=== PATIENT | male | born 1970 | race Two or more races ===

== ENCOUNTER 2016-08-28 11:52 | Inpatient (IN) | payer OTHER ==
[2016-08-28 12:02] VITALS: BMI 27.6
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
[2016-08-28] MEDS ORDERED: MENTHOL/PHENOL 1 EACH UD MM PRN (13:50)
[2016-08-28] MEDS ORDERED: MAGNESIUM HYDROX 2400MG/30ML ORAL SUSPENSION 30 ML CUP PO PRN (13:50)
[2016-08-28] MEDS ORDERED: MAG HYDROX/AL HYDROX/SIMETH 30 ML UNIT-DOSE CUP PO PRN (13:50)
[2016-08-28] MEDS ORDERED: hydrOXYzine PAMOATE 50 MG CAPSULE (FP) PO PRN (13:50)
[2016-08-28] MEDS ORDERED: diphenhydrAMINE HCL 50 MG CAPSULE PO PRN (13:50)
[2016-08-28] MEDS ORDERED: guaiFENesin/D-METHORPHAN HB 10 ML UNIT-DOSE CUPS PO PRN (13:50)
[2016-08-28] MEDS ORDERED: LOPERAMIDE HCL 2 MG CAPSULE PO PRN (13:50)
[2016-08-28] MEDS ORDERED: MAGNESIUM CITRATE 300 ML BOTTLE PO PRN (13:50)
[2016-08-28] MEDS ORDERED: METHADONE HCL 10 MG TABLET (FOR DETOX USE ONLY) PO ONE ×2 (14:00→23:00)
[2016-08-28] MEDS: diazePAM 5 MG TABLET PO PRN (15:19)
[2016-08-28] MEDS: CYCLOBENZAPRINE HCL 10 MG TABLET (FP) PO PRN (15:21)
[2016-08-28] MEDS: IBUPROFEN 400 MG TABLET (FP) PO PRN (17:31)
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
[2016-08-28 20:09] LABS: URINE APPEARANCE CLEAR; URINE BILIRUBIN NEGATIVE (NEGATIVE); URINE BLOOD NEGATIVE (NEGATIVE); URINE COLOR YELLOW; URINE GLUCOSE (UA) NEGATIVE (NEGATIVE); URINE KETONE NEGATIVE (NEGATIVE); URINE LEUK ESTERASE NEGATIVE (NEGATIVE); URINE NITRITE NEGATIVE (NEGATIVE); URINE PROTEIN NEGATIVE (NEGATIVE); URINE UROBILINOGEN NEGATIVE E.U./dl (0.2-1.0)
[2016-08-28] MEDS ORDERED: DIVALPROEX SODIUM 500 MG TABLET E.C. PO SCH (22:00)
[2016-08-28] MEDS: THIAMINE HCL 100 MG TABLET (FP) PO SCH (22:20)
[2016-08-28] MEDS: QUEtiapine FUMARATE 100 MG TABLET (FP) PO SCH (22:20)
[2016-08-28] MEDS: cloNIDine HCL 0.1 MG TABLET PO SCH (22:20)
[2016-08-28] MEDS: BENZTROPINE MESYLATE 1 MG TABLET (FP) PO SCH (22:21)
[2016-08-29] MEDS: IBUPROFEN 400 MG TABLET (FP) PO PRN (05:50)
--- NOTE | 2016-08-29 09:52 | PN ---
[facility] COWS - Scale Resting Pulse: 0= [place] 80 or Below Sweatin= Chills/Flushing Restless Observation: 3= Extraneous Movement Pupil Size: 1= Pupils >than Normal Bone or Joint Aches: 2= Severe Diffuse Aches Runny Nose/ Eye Tearin= Runny Nose/Eyes GI Upset > 30mins: 2= Nausea/Diarrhea Tremor Observation of Outstretched Hands: 2= Slight Tremor Visible Yawning Observation: 1= 1-2x During Session Anxiety or Irritability: 2=Irritable/Anxious Goose Flesh Skin: 0=Smooth Skin COWS Score: 16 S Progress Note (SOAP) Subjective: ALERT,IRRITABLE,ANXIOUS,TREMOR,INTERRUPTED SLEEP,PAIN IN THE BODY AND BACK Objective: 08/29/16 09:50 Vital Signs Temperature 97.5 F L 08/29/16 06:10 Pulse Rate 62 08/29/16 06:10 Respiratory Rate 16 08/29/16 06:10 Blood Pressure 98/60 08/29/16 06:10 O2 Sat by Pulse Oximetry (%) 08/29/16 09:50 08/29/16 09:50 EKG NSR,NORMAL ECG Laboratory Last Values Urine Color Yellow 08/28/16 14:00 Urine Appearance Clear 08/28/16 14:00 Urine pH 5.0 (5.0-8.0) 08/28/16 14:00 Ur Specific [place] 1.026 (1.001-1.035) 08/28/16 14:00 Urine Protein Negative (NEGATIVE) 08/28/16 14:00 Urine Glucose (UA) Negative (NEGATIVE) 08/28/16 14:00 Urine Ketones Negative (NEGATIVE) 08/28/16 14:00 Urine Blood Negative (NEGATIVE) 08/28/16 14:00 Urine Nitrite Negative (NEGATIVE) 08/28/16 14:00 Urine Bilirubin Negative (NEGATIVE) 08/28/16 14:00 Urine Urobilinogen Negative E.U./dl (0.2-1.0) 08/28/16 14:00 Ur Leukocyte Esterase Negative (NEGATIVE) 08/28/16 14:00 LABS PENDING Assessment: 08/29/16 09:51 WITHDRAWAL SYMPTOM Plan: CONTINUE DETOX
--- NOTE | 2016-08-29 09:54 | PN ---
S Progress Note (SOAP) Subjective: ALERT,IRRITABLE,ANXIOUS,INTERRUPTED SLEEP Objective: 08/29/16 09:53 Vital Signs Temperature 97.5 F L 08/29/16 06:10 Pulse Rate 62 08/29/16 06:10 Respiratory Rate 16 08/29/16 06:10 Blood Pressure 98/60 08/29/16 06:10 O2 Sat by Pulse Oximetry (%) Assessment: 08/29/16 09:53 WITHDRAWAL SYMPTOM Plan: CONTINUE DETOX,DISCHARGE IN AM
[2016-08-29] MEDS ORDERED: METHADONE HCL 10 MG TABLET (FOR DETOX USE ONLY) PO ONE (10:00)
[2016-08-29] MEDS: PRENATAL VITAMINS W/ FOLIC ACID TABLET (FP) PO SCH (10:18)
[2016-08-29] MEDS: cloNIDine HCL 0.1 MG TABLET PO SCH ×2 (10:18→22:22)
[2016-08-29] MEDS: CITALOPRAM HYDROBROMIDE 10 MG TABLET (FP) PO SCH (10:18)
[2016-08-29] MEDS: QUEtiapine FUMARATE 100 MG TABLET (FP) PO SCH ×2 (10:18→22:22)
[2016-08-29] MEDS: BENZTROPINE MESYLATE 1 MG TABLET (FP) PO SCH ×2 (10:19→22:23)
[2016-08-29] MEDS: diazePAM 5 MG TABLET PO PRN ×3 (10:19→22:22)
[2016-08-29 11:33] LABS: MCH 30.7 pg (25.7-33.7); MCHC 33.8 g/dl (32.0-35.9); MEAN CELL VOLUME 90.8 fl (80-96); MEAN PLT VOLUME 8.6 fl (7.5-11.1); PLATELET COUNT 251 K/MM3 (134-434); RDW 15.4 % (11.9-15.9); WHITE BLOOD COUNT 10.5 K/mm3 (4.0-10.0)
[2016-08-29 12:10] LABS: ALBUMIN 4.2 g/dl (3.4-5.0); ANION GAP 3 (8-16); BILIRUBIN,TOTAL 0.4 mg/dL (0.2-1.0); CALCIUM 9.3 mg/dL (8.5-10.1); CO2 29 mmol/L (21-32); GLUCOSE,RANDOM 76 mg/dL (74-106); SGOT/AST 55 U/L (15-37); SGPT/ALT 246 U/L (12-78); TOT PROT 8.2 g/dl (6.4-8.2)
[2016-08-29 12:11] LABS: ALK PHOS 116 U/L (45-117)
[2016-08-29] MEDS: THIAMINE HCL 100 MG TABLET (FP) PO SCH (22:22)
[2016-08-29] MEDS: RANITIDINE HCL 150 MG TABLET (FP) PO SCH (22:22)
[2016-08-29] MEDS: CYCLOBENZAPRINE HCL 10 MG TABLET (FP) PO PRN (22:24)
[2016-08-30] MEDS ORDERED: METHADONE HCL 5 MG TABLET (FOR DETOX USE ONLY) PO ONE (10:00)
[2016-08-30] MEDS: CITALOPRAM HYDROBROMIDE 10 MG TABLET (FP) PO SCH (10:18)
[2016-08-30] MEDS: RANITIDINE HCL 150 MG TABLET (FP) PO SCH ×2 (10:18→22:08)
[2016-08-30] MEDS: cloNIDine HCL 0.1 MG TABLET PO SCH ×2 (10:19→22:09)
[2016-08-30] MEDS: PRENATAL VITAMINS W/ FOLIC ACID TABLET (FP) PO SCH (10:19)
[2016-08-30] MEDS: QUEtiapine FUMARATE 100 MG TABLET (FP) PO SCH ×2 (10:19→22:09)
[2016-08-30] MEDS: BENZTROPINE MESYLATE 1 MG TABLET (FP) PO SCH ×2 (10:19→22:08)
[2016-08-30] MEDS: CYCLOBENZAPRINE HCL 10 MG TABLET (FP) PO PRN ×2 (10:20→22:11)
[2016-08-30] MEDS: ACETAMINOPHEN 325 MG TABLET (FP) PO PRN (12:59)
[2016-08-30] MEDS: P-EPHED 60MG/TRIPROLIDI 2.5MG TABLET PO PRN (15:02)
[2016-08-30] MEDS: diazePAM 5 MG TABLET PO PRN ×2 (15:03→22:11)
--- NOTE | 2016-08-30 15:52 | PN ---
[facility] COWS - Scale Resting Pulse: 1= [place] 81-100 Sweatin=Flushed/Facial Moisture Restless Observation: 1= Difficult to Sit Still Pupil Size: 0= Normal to Room Light Bone or Joint Aches: 2= Severe Diffuse Aches Runny Nose/ Eye Tearin= Runny Nose/Eyes GI Upset > 30mins: 2= Nausea/Diarrhea Tremor Observation of Outstretched Hands: 2= Slight Tremor Visible Yawning Observation: 1= 1-2x During Session Anxiety or Irritability: 2=Irritable/Anxious Goose Flesh Skin: 0=Smooth Skin COWS Score: 15 B[facility] Progress Note (SOAP) Subjective: ANXIETY,SWEATING,INTERRUPTED SLEEP,RESTLESS. Objective: 08/30/16 15:51 Vital Signs - 8 hr 08/30/16 08/30/16 10:36 13:49 Temperature 96.7 F L 98.5 F Pulse Rate 78 72 Respiratory 18 18 Rate Blood Pressure 114/65 123/62 Laboratory Last Values WBC 10.5 K/mm3 (4.0-10.0) H D 08/29/16 06:00 RBC 4.41 M/mm3 (4.00-5.60) 08/29/16 06:00 Hgb 13.6 GM/dL (11.7-16.9) 08/29/16 06:00 Hct 40.1 % (35.4-49) 08/29/16 06:00 MCV 90.8 fl (80-96) 08/29/16 06:00 MCHC 33.8 g/dl (32.0-35.9) 08/29/16 06:00 RDW 15.4 % (11.9-15.9) 08/29/16 06:00 Plt Count 251 K/MM3 (134-434) 08/29/16 06:00 MPV 8.6 fl (7.5-11.1) 08/29/16 06:00 Sodium 136 mmol/L (136-145) 08/29/16 06:00 Potassium 5.0 mmol/L (3.5-5.1) 08/29/16 06:00 Chloride 104 mmol/L (98-107) 08/29/16 06:00 Carbon Dioxide 29 mmol/L (21-32) 08/29/16 06:00 Anion Gap 3 (8-16) L 08/29/16 06:00 BUN 22 mg/dL (7-18) H D 08/29/16 06:00 Creatinine 1.0 mg/dL (0.7-1.3) 08/29/16 06:00 Creat Clearance w eGFR > 60 (>60) 08/29/16 06:00 Random Glucose 76 mg/dL (74-106) D 08/29/16 06:00 Calcium 9.3 mg/dL (8.5-10.1) 08/29/16 06:00 Total Bilirubin 0.4 mg/dL (0.2-1.0) 08/29/16 06:00 AST 55 U/L (15-37) H D 08/29/16 06:00 ALT 246 U/L (12-78) H D 08/29/16 06:00 Alkaline Phosphatase 116 U/L (45-117) D 08/29/16 06:00 Total Protein 8.2 g/dl (6.4-8.2) 08/29/16 06:00 Albumin 4.2 g/dl (3.4-5.0) D 08/29/16 06:00 Urine Color Yellow 08/28/16 14:00 Urine Appearance Clear 08/28/16 14:00 Urine pH 5.0 (5.0-8.0) 08/28/16 14:00 Ur Specific [place] 1.026 (1.001-1.035) 08/28/16 14:00 Urine Protein Negative (NEGATIVE) 08/28/16 14:00 Urine Glucose (UA) Negative (NEGATIVE) 08/28/16 14:00 Urine Ketones Negative (NEGATIVE) 08/28/16 14:00 Urine Blood Negative (NEGATIVE) 08/28/16 14:00 Urine Nitrite Negative (NEGATIVE) 08/28/16 14:00 Urine Bilirubin Negative (NEGATIVE) 08/28/16 14:00 Urine Urobilinogen Negative E.U./dl (0.2-1.0) 08/28/16 14:00 Ur Leukocyte Esterase Negative (NEGATIVE) 08/28/16 14:00 Valproic Acid 19.423 ug/ml (50-100) L 08/29/16 09:00 RPR Titer Nonreactive (NONREACTIVE) 08/29/16 06:00 LABS NOTED Assessment: 08/30/16 15:51 WITHDRAWAL SX. Plan: CONTINUE DETOX
--- NOTE | 2016-08-30 18:51 | PN ---
[facility] Progress Note Note: Psychiatry Attending's note: Labs reviewed. CBC,basic metabolic panel and LFTS results seen. Satisfactory for initiation of valproate (patient's request). Depakote 500 mg po bid.Ordered.Discussed with patient. Mr Saez had a 20 minute session with this writer technical publications. He gave his consent (verbal) to follow this careplan. Side effects/benefits of valproate discussed with patient. Made aware of risk of liver dysfunction,blood dyscrasias,hair loss. Also informed of risk of weight gain and sedation. Will monitor response.
[2016-08-30] MEDS: THIAMINE HCL 100 MG TABLET (FP) PO SCH (22:08)
[2016-08-30] MEDS: DIVALPROEX SODIUM 500 MG TABLET E.C. PO SCH (22:09)
[2016-08-31] MEDS ORDERED: METHADONE HCL 5 MG TABLET (FOR DETOX USE ONLY) PO ONE (10:00)
[2016-08-31] MEDS: DIVALPROEX SODIUM 500 MG TABLET E.C. PO SCH ×2 (10:23→22:22)
[2016-08-31] MEDS: RANITIDINE HCL 150 MG TABLET (FP) PO SCH ×2 (10:23→22:21)
[2016-08-31] MEDS: CITALOPRAM HYDROBROMIDE 10 MG TABLET (FP) PO SCH (10:23)
[2016-08-31] MEDS: PRENATAL VITAMINS W/ FOLIC ACID TABLET (FP) PO SCH (10:23)
[2016-08-31] MEDS: QUEtiapine FUMARATE 100 MG TABLET (FP) PO SCH ×2 (10:23→22:21)
[2016-08-31] MEDS: BENZTROPINE MESYLATE 1 MG TABLET (FP) PO SCH ×2 (10:24→22:22)
[2016-08-31] MEDS: diazePAM 5 MG TABLET PO PRN (10:24)
[2016-08-31] MEDS: cloNIDine HCL 0.1 MG TABLET PO SCH ×2 (10:25→22:21)
[2016-08-31] MEDS: CYCLOBENZAPRINE HCL 10 MG TABLET (FP) PO PRN (10:25)
--- NOTE | 2016-08-31 10:43 | PN ---
[facility] Progress Note (SOAP) Subjective: SWEATING,INTERRUPTED SLEEP,RESTLESS. Objective: 08/31/16 10:42 Vital Signs - 8 hr 08/31/16 08/31/16 06:12 10:02 Temperature 96.6 F L 97.1 F L Pulse Rate 70 86 Respiratory 18 18 Rate Blood Pressure 113/64 92/66 Laboratory Last Values WBC 10.5 K/mm3 (4.0-10.0) H D 08/29/16 06:00 RBC 4.41 M/mm3 (4.00-5.60) 08/29/16 06:00 Hgb 13.6 GM/dL (11.7-16.9) 08/29/16 06:00 Hct 40.1 % (35.4-49) 08/29/16 06:00 MCV 90.8 fl (80-96) 08/29/16 06:00 MCHC 33.8 g/dl (32.0-35.9) 08/29/16 06:00 RDW 15.4 % (11.9-15.9) 08/29/16 06:00 Plt Count 251 K/MM3 (134-434) 08/29/16 06:00 MPV 8.6 fl (7.5-11.1) 08/29/16 06:00 Sodium 136 mmol/L (136-145) 08/29/16 06:00 Potassium 5.0 mmol/L (3.5-5.1) 08/29/16 06:00 Chloride 104 mmol/L (98-107) 08/29/16 06:00 Carbon Dioxide 29 mmol/L (21-32) 08/29/16 06:00 Anion Gap 3 (8-16) L 08/29/16 06:00 BUN 22 mg/dL (7-18) H D 08/29/16 06:00 Creatinine 1.0 mg/dL (0.7-1.3) 08/29/16 06:00 Creat Clearance w eGFR > 60 (>60) 08/29/16 06:00 Random Glucose 76 mg/dL (74-106) D 08/29/16 06:00 Calcium 9.3 mg/dL (8.5-10.1) 08/29/16 06:00 Total Bilirubin 0.4 mg/dL (0.2-1.0) 08/29/16 06:00 AST 55 U/L (15-37) H D 08/29/16 06:00 ALT 246 U/L (12-78) H D 08/29/16 06:00 Alkaline Phosphatase 116 U/L (45-117) D 08/29/16 06:00 Total Protein 8.2 g/dl (6.4-8.2) 08/29/16 06:00 Albumin 4.2 g/dl (3.4-5.0) D 08/29/16 06:00 Urine Color Yellow 08/28/16 14:00 Urine Appearance Clear 08/28/16 14:00 Urine pH 5.0 (5.0-8.0) 08/28/16 14:00 Ur Specific [place] 1.026 (1.001-1.035) 08/28/16 14:00 Urine Protein Negative (NEGATIVE) 08/28/16 14:00 Urine Glucose (UA) Negative (NEGATIVE) 08/28/16 14:00 Urine Ketones Negative (NEGATIVE) 08/28/16 14:00 Urine Blood Negative (NEGATIVE) 08/28/16 14:00 Urine Nitrite Negative (NEGATIVE) 08/28/16 14:00 Urine Bilirubin Negative (NEGATIVE) 08/28/16 14:00 Urine Urobilinogen Negative E.U./dl (0.2-1.0) 08/28/16 14:00 Ur Leukocyte Esterase Negative (NEGATIVE) 08/28/16 14:00 Valproic Acid 19.423 ug/ml (50-100) L 08/29/16 09:00 RPR Titer Nonreactive (NONREACTIVE) 08/29/16 06:00 LABS NOTED Assessment: 08/31/16 10:43 WITHDRAWAL SX. Plan: CONTINUE DETOX
[2016-08-31] MEDS: ACETAMINOPHEN 325 MG TABLET (FP) PO PRN ×2 (16:51→22:23)
[2016-08-31] MEDS: THIAMINE HCL 100 MG TABLET (FP) PO SCH (22:21)
[2016-08-31] MEDS: P-EPHED 60MG/TRIPROLIDI 2.5MG TABLET PO PRN (22:22)
[2016-09-01] MEDS ORDERED: METHADONE HCL 10 MG TABLET (FOR DETOX USE ONLY) PO ONE (10:00)
[2016-09-01] MEDS: QUEtiapine FUMARATE 100 MG TABLET (FP) PO SCH ×2 (10:16→22:21)
[2016-09-01] MEDS: PRENATAL VITAMINS W/ FOLIC ACID TABLET (FP) PO SCH (10:16)
[2016-09-01] MEDS: DIVALPROEX SODIUM 500 MG TABLET E.C. PO SCH ×2 (10:17→22:21)
[2016-09-01] MEDS: BENZTROPINE MESYLATE 1 MG TABLET (FP) PO SCH ×2 (10:17→22:21)
[2016-09-01] MEDS: CITALOPRAM HYDROBROMIDE 10 MG TABLET (FP) PO SCH (10:17)
[2016-09-01] MEDS: cloNIDine HCL 0.1 MG TABLET PO SCH ×2 (10:17→22:20)
[2016-09-01] MEDS: RANITIDINE HCL 150 MG TABLET (FP) PO SCH ×2 (10:18→22:22)
[2016-09-01] MEDS: CYCLOBENZAPRINE HCL 10 MG TABLET (FP) PO PRN ×2 (10:19→22:22)
[2016-09-01] MEDS: ACETAMINOPHEN 325 MG TABLET (FP) PO PRN ×2 (14:00→18:09)
--- NOTE | 2016-09-01 14:58 | PN ---
[facility] Progress Note (SOAP) Subjective: Sweating, Interrupted Sleep, Left knee Pain (pt. reports history of osteoarthritis of knee), Back Ache. Objective: 09/01/16 14:57 Vital Signs Temperature 96.0 F L 09/01/16 09:39 Pulse Rate 89 09/01/16 09:39 Respiratory Rate 20 09/01/16 09:39 Blood Pressure 118/69 09/01/16 09:39 O2 Sat by Pulse Oximetry (%) Laboratory Last Values WBC 10.5 K/mm3 (4.0-10.0) H D 08/29/16 06:00 RBC 4.41 M/mm3 (4.00-5.60) 08/29/16 06:00 Hgb 13.6 GM/dL (11.7-16.9) 08/29/16 06:00 Hct 40.1 % (35.4-49) 08/29/16 06:00 MCV 90.8 fl (80-96) 08/29/16 06:00 MCHC 33.8 g/dl (32.0-35.9) 08/29/16 06:00 RDW 15.4 % (11.9-15.9) 08/29/16 06:00 Plt Count 251 K/MM3 (134-434) 08/29/16 06:00 MPV 8.6 fl (7.5-11.1) 08/29/16 06:00 Sodium 136 mmol/L (136-145) 08/29/16 06:00 Potassium 5.0 mmol/L (3.5-5.1) 08/29/16 06:00 Chloride 104 mmol/L (98-107) 08/29/16 06:00 Carbon Dioxide 29 mmol/L (21-32) 08/29/16 06:00 Anion Gap 3 (8-16) L 08/29/16 06:00 BUN 22 mg/dL (7-18) H D 08/29/16 06:00 Creatinine 1.0 mg/dL (0.7-1.3) 08/29/16 06:00 Creat Clearance w eGFR > 60 (>60) 08/29/16 06:00 Random Glucose 76 mg/dL (74-106) D 08/29/16 06:00 Calcium 9.3 mg/dL (8.5-10.1) 08/29/16 06:00 Total Bilirubin 0.4 mg/dL (0.2-1.0) 08/29/16 06:00 AST 55 U/L (15-37) H D 08/29/16 06:00 ALT 246 U/L (12-78) H D 08/29/16 06:00 Alkaline Phosphatase 116 U/L (45-117) D 08/29/16 06:00 Total Protein 8.2 g/dl (6.4-8.2) 08/29/16 06:00 Albumin 4.2 g/dl (3.4-5.0) D 08/29/16 06:00 Urine Color Yellow 08/28/16 14:00 Urine Appearance Clear 08/28/16 14:00 Urine pH 5.0 (5.0-8.0) 08/28/16 14:00 Ur Specific [place] 1.026 (1.001-1.035) 08/28/16 14:00 Urine Protein Negative (NEGATIVE) 08/28/16 14:00 Urine Glucose (UA) Negative (NEGATIVE) 08/28/16 14:00 Urine Ketones Negative (NEGATIVE) 08/28/16 14:00 Urine Blood Negative (NEGATIVE) 08/28/16 14:00 Urine Nitrite Negative (NEGATIVE) 08/28/16 14:00 Urine Bilirubin Negative (NEGATIVE) 08/28/16 14:00 Urine Urobilinogen Negative E.U./dl (0.2-1.0) 08/28/16 14:00 Ur Leukocyte Esterase Negative (NEGATIVE) 08/28/16 14:00 Valproic Acid 19.423 ug/ml (50-100) L 08/29/16 09:00 RPR Titer Nonreactive (NONREACTIVE) 08/29/16 06:00 LABS NOTED. Assessment: 09/01/16 14:58 WITHDRAWAL SYMPTOMS. Plan: CONTINUE DETOX. INCREASE PO FLUIDS. ADVISED PT. TO FOLLOW-UP WITH PMD / REHAB MEDICAL PROVIDER AFTER DISCHARGE FOR GENERAL MEDICAL ASSESSMENT AND REGARDING ABNORMAL LAB VALUES.
[2016-09-01] MEDS ORDERED: AMMONIUM LACTATE 12% LOTION 225 GM BOTTLE TP PRN (15:00)
[2016-09-01] MEDS: THIAMINE HCL 100 MG TABLET (FP) PO SCH (22:20)
[2016-09-02] MEDS ORDERED: METHADONE HCL 5 MG TABLET (FOR DETOX USE ONLY) PO ONE (06:00)
--- NOTE | 2016-09-02 08:57 | DS ---
[facility] Detox Discharge Summary Admission Date: 08/28/16 Discharge Date: 09/02/16 - History Present History: Cannabis Dependence, Cocaine Dependence, Opioid Dependence Pertinent Past History: HEP C PPD+ - Physical Exam Results Vital Signs: Vital Signs Temperature 96.9 F L 09/02/16 06:21 Pulse Rate 75 09/02/16 06:21 Respiratory Rate 16 09/02/16 06:21 Blood Pressure 103/63 09/02/16 06:21 O2 Sat by Pulse Oximetry (%) Pertinent Admission Physical Exam Findings: WITHDRAWAL SX. Laboratory Last Values WBC 10.5 K/mm3 (4.0-10.0) H D 08/29/16 06:00 RBC 4.41 M/mm3 (4.00-5.60) 08/29/16 06:00 Hgb 13.6 GM/dL (11.7-16.9) 08/29/16 06:00 Hct 40.1 % (35.4-49) 08/29/16 06:00 MCV 90.8 fl (80-96) 08/29/16 06:00 MCHC 33.8 g/dl (32.0-35.9) 08/29/16 06:00 RDW 15.4 % (11.9-15.9) 08/29/16 06:00 Plt Count 251 K/MM3 (134-434) 08/29/16 06:00 MPV 8.6 fl (7.5-11.1) 08/29/16 06:00 Sodium 136 mmol/L (136-145) 08/29/16 06:00 Potassium 5.0 mmol/L (3.5-5.1) 08/29/16 06:00 Chloride 104 mmol/L (98-107) 08/29/16 06:00 Carbon Dioxide 29 mmol/L (21-32) 08/29/16 06:00 Anion Gap 3 (8-16) L 08/29/16 06:00 BUN 22 mg/dL (7-18) H D 08/29/16 06:00 Creatinine 1.0 mg/dL (0.7-1.3) 08/29/16 06:00 Creat Clearance w eGFR > 60 (>60) 08/29/16 06:00 Random Glucose 76 mg/dL (74-106) D 08/29/16 06:00 Calcium 9.3 mg/dL (8.5-10.1) 08/29/16 06:00 Total Bilirubin 0.4 mg/dL (0.2-1.0) 08/29/16 06:00 AST 55 U/L (15-37) H D 08/29/16 06:00 ALT 246 U/L (12-78) H D 08/29/16 06:00 Alkaline Phosphatase 116 U/L (45-117) D 08/29/16 06:00 Total Protein 8.2 g/dl (6.4-8.2) 08/29/16 06:00 Albumin 4.2 g/dl (3.4-5.0) D 08/29/16 06:00 Urine Color Yellow 08/28/16 14:00 Urine Appearance Clear 08/28/16 14:00 Urine pH 5.0 (5.0-8.0) 08/28/16 14:00 Ur Specific [place] 1.026 (1.001-1.035) 08/28/16 14:00 Urine Protein Negative (NEGATIVE) 08/28/16 14:00 Urine Glucose (UA) Negative (NEGATIVE) 08/28/16 14:00 Urine Ketones Negative (NEGATIVE) 08/28/16 14:00 Urine Blood Negative (NEGATIVE) 08/28/16 14:00 Urine Nitrite Negative (NEGATIVE) 08/28/16 14:00 Urine Bilirubin Negative (NEGATIVE) 08/28/16 14:00 Urine Urobilinogen Negative E.U./dl (0.2-1.0) 08/28/16 14:00 Ur Leukocyte Esterase Negative (NEGATIVE) 08/28/16 14:00 Valproic Acid 19.423 ug/ml (50-100) L 08/29/16 09:00 RPR Titer Nonreactive (NONREACTIVE) 08/29/16 06:00 LABS NOTED - Treatment Hospital Course: Detox Protocol Followed, Detoxed Safely, Responded well, Discharged Condition Good, Rehab Referral Accepted - Medication Discharge Medications: Ambulatory Orders Omeprazole [Prilosec (RX)] 40 mg PO DAILY #30 capsule. 07/11/15 Benztropine Mesylate [Cogentin -] 1 mg PO BID #60 tablet 05/24/16 Citalopram Hydrobromide [Celexa -] 20 mg PO DAILY #30 tablet 05/24/16 Divalproex [Depakote -] 500 mg PO BID #60 tablet.ec 05/24/16 Quetiapine Fumarate [Seroquel] 200 tab PO BID #60 tablet 05/24/16 - Diagnosis (1) Cannabis dependence Current Visit: Yes Status: Acute (2) Cocaine dependence, uncomplicated Current Visit: Yes Status: Acute (3) Nicotine dependence Current Visit: Yes Status: Acute Qualifiers: Nicotine product type: cigarettes Substance use status: uncomplicated Qualified Code(s): F17.210 - Nicotine dependence, cigarettes, uncomplicated (4) Opioid dependence with withdrawal Current Visit: Yes Status: Acute (5) Bipolar disorder Current Visit: Yes Status: Chronic Qualifiers: Current bipolar episode type: mixed (6) Hepatitis C Current Visit: Yes Status: Chronic Qualifiers: Viral hepatitis chronicity: chronic Hepatic coma status: without hepatic coma Qualified Code(s): B18.2 - Chronic viral hepatitis C (7) Peptic ulcer disease Current Visit: Yes Status: Chronic (8) PTSD (post-traumatic stress disorder) Current Visit: Yes Status: Suspected - AMA Did Patient Leave Against Medical Advice: No
[2016-09-02] MEDS: RANITIDINE HCL 150 MG TABLET (FP) PO SCH (10:09)
[2016-09-02] MEDS: DIVALPROEX SODIUM 500 MG TABLET E.C. PO SCH (10:09)
[2016-09-02] MEDS: CITALOPRAM HYDROBROMIDE 10 MG TABLET (FP) PO SCH (10:09)
[2016-09-02] MEDS: cloNIDine HCL 0.1 MG TABLET PO SCH (10:09)
[2016-09-02] MEDS: PRENATAL VITAMINS W/ FOLIC ACID TABLET (FP) PO SCH (10:09)
[2016-09-02] MEDS: QUEtiapine FUMARATE 100 MG TABLET (FP) PO SCH (10:09)
[2016-09-02] MEDS: BENZTROPINE MESYLATE 1 MG TABLET (FP) PO SCH (10:10)
[2016-09-02 10:48] VITALS: BP 120/76; PULSE 94; TEMP 96.7
== END 2016-09-02 11:07 | disposition other institution (70) | DRG 773 ==
LOC: YASAS 11:52 → EDBD 13:57 → Y3N 13:57
PROVIDERS: ADMIT Internal Medicine; ATTEND Internal Medicine
PROC: HZ2ZZZZ Detoxification Services for Substance Abuse Treatment (ICD-10-PCS; principal; 2016-08-28)
DX: F11.23 Opioid dependence with withdrawal (principal); F14.20 Cocaine dependence, uncomplicated; F12.20 Cannabis dependence, uncomplicated; F17.210 Nicotine dependence, cigarettes, uncomplicated; F43.10 Post-traumatic stress disorder, unspecified; F31.81 Bipolar II disorder; R76.11 Nonspecific reaction to tuberculin skin test without active tuberculosis; B18.2 Chronic viral hepatitis C; K27.7 Chronic peptic ulcer, site unspecified, without hemorrhage or perforation; Z86.2 Personal history of diseases of the blood and blood-forming organs and certain disorders involving the immune mechanism; Z91.5 Personal history of self-harm; Z87.898 Personal history of other specified conditions
CPT/HCPCS: 36415; 80053; 80164; 81003; 85027; 86593; 93005; 93010

== ENCOUNTER 2016-09-02 11:19 | Inpatient (IN) | payer OTHER ==
[2016-09-02] MEDS ORDERED: IBUPROFEN 400 MG TABLET (FP) PO PRN (12:09)
[2016-09-02] MEDS ORDERED: MENTHOL/PHENOL 1 EACH UD MM PRN (12:09)
[2016-09-02] MEDS ORDERED: MAGNESIUM HYDROX 2400MG/30ML ORAL SUSPENSION 30 ML CUP PO PRN (12:09)
[2016-09-02] MEDS ORDERED: MAGNESIUM CITRATE 300 ML BOTTLE PO PRN (12:09)
[2016-09-02] MEDS ORDERED: P-EPHED 60MG/TRIPROLIDI 2.5MG TABLET PO PRN (12:09)
[2016-09-02] MEDS ORDERED: MAG HYDROX/AL HYDROX/SIMETH 30 ML UNIT-DOSE CUP PO PRN (12:09)
[2016-09-02] MEDS ORDERED: hydrOXYzine PAMOATE 50 MG CAPSULE (FP) PO PRN (12:09)
[2016-09-02] MEDS ORDERED: LOPERAMIDE HCL 2 MG CAPSULE PO PRN (12:09)
[2016-09-02] MEDS ORDERED: guaiFENesin/D-METHORPHAN HB 10 ML UNIT-DOSE CUPS PO PRN (12:09)
--- NOTE | 2016-09-02 12:14 | HP ---
[facility] Assess/Revision - Admission History [facility] Date of Admission to Rehab: 09/02/16 - Findings Detox History & Physical reviewed: Yes Concur with findings: Yes Comments/Additional Findings: FOR REHAB PROTOCOL
[2016-09-02] MEDS: CITALOPRAM HYDROBROMIDE 10 MG TABLET (FP) PO SCH (13:37)
[2016-09-02] MEDS: BENZTROPINE MESYLATE 1 MG TABLET (FP) PO SCH ×2 (13:38→21:36)
[2016-09-02] MEDS: DIVALPROEX SODIUM 500 MG TABLET E.C. PO SCH ×2 (13:46→21:36)
[2016-09-02 17:41] VITALS: BMI 27.6
[2016-09-02] MEDS: RANITIDINE HCL 150 MG TABLET (FP) PO SCH (21:36)
[2016-09-02] MEDS: CYCLOBENZAPRINE HCL 10 MG TABLET (FP) PO PRN (21:36)
[2016-09-02] MEDS: THIAMINE HCL 100 MG TABLET (FP) PO SCH (21:36)
[2016-09-02] MEDS: QUEtiapine FUMARATE 200 MG TABLET PO SCH (21:36)
[2016-09-02] MEDS: ACETAMINOPHEN 325 MG TABLET (FP) PO PRN (21:37)
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
[2016-09-03] MEDS: CITALOPRAM HYDROBROMIDE 10 MG TABLET (FP) PO SCH (09:40)
[2016-09-03] MEDS: RANITIDINE HCL 150 MG TABLET (FP) PO SCH ×2 (09:40→21:37)
[2016-09-03] MEDS: PRENATAL VITAMINS W/ FOLIC ACID TABLET (FP) PO SCH (09:40)
[2016-09-03] MEDS: DIVALPROEX SODIUM 500 MG TABLET E.C. PO SCH ×2 (09:41→21:36)
[2016-09-03] MEDS: BENZTROPINE MESYLATE 1 MG TABLET (FP) PO SCH ×2 (09:41→21:37)
--- NOTE | 2016-09-03 12:53 | PN ---
[facility] Progress Note (SOAP) Subjective: rash on face and sorethroat Objective: 09/03/16 12:50 Vital Signs Temperature 98.2 F 09/03/16 06:53 Pulse Rate 71 09/03/16 06:53 Respiratory Rate 18 09/03/16 06:53 Blood Pressure 111/61 09/03/16 06:53 O2 Sat by Pulse Oximetry (%) pt aox3 in nad ambulating skin - papulo squamous rash on face oral + redness , enlarged tonsils Assessment: 09/03/16 12:51 seborrrheic dermatitis pharyngits Plan: fluids hydrocortisone cream bid augmentin 875mg bid rest
[2016-09-03] MEDS ORDERED: HYDROCORTISONE 1% TOPICAL CREAM 30 GM TUBE TP PRN (12:54)
[2016-09-03] MEDS: CYCLOBENZAPRINE HCL 10 MG TABLET (FP) PO PRN (15:53)
[2016-09-03] MEDS: AMOX TR/POT CLAV 875MG/125MG TABLETS (FP) PO SCH (18:03)
[2016-09-03] MEDS: QUEtiapine FUMARATE 200 MG TABLET PO SCH (21:37)
[2016-09-03] MEDS: THIAMINE HCL 100 MG TABLET (FP) PO SCH (21:37)
[2016-09-04] MEDS: AMOX TR/POT CLAV 875MG/125MG TABLETS (FP) PO SCH ×2 (07:58→17:20)
[2016-09-04] MEDS: CITALOPRAM HYDROBROMIDE 10 MG TABLET (FP) PO SCH (09:50)
[2016-09-04] MEDS: PRENATAL VITAMINS W/ FOLIC ACID TABLET (FP) PO SCH (09:50)
[2016-09-04] MEDS: BENZTROPINE MESYLATE 1 MG TABLET (FP) PO SCH ×2 (09:51→21:39)
[2016-09-04] MEDS: RANITIDINE HCL 150 MG TABLET (FP) PO SCH ×2 (09:51→21:40)
[2016-09-04] MEDS: DIVALPROEX SODIUM 500 MG TABLET E.C. PO SCH ×2 (09:51→21:40)
[2016-09-04] MEDS: ACETAMINOPHEN 325 MG TABLET (FP) PO PRN (09:53)
[2016-09-04] MEDS: CYCLOBENZAPRINE HCL 10 MG TABLET (FP) PO PRN (14:11)
[2016-09-04] MEDS: THIAMINE HCL 100 MG TABLET (FP) PO SCH (21:40)
[2016-09-04] MEDS: QUEtiapine FUMARATE 200 MG TABLET PO SCH (21:40)
[2016-09-05] MEDS: AMOX TR/POT CLAV 875MG/125MG TABLETS (FP) PO SCH ×2 (07:00→18:05)
[2016-09-05] MEDS: BENZTROPINE MESYLATE 1 MG TABLET (FP) PO SCH ×2 (10:23→21:50)
[2016-09-05] MEDS: DIVALPROEX SODIUM 500 MG TABLET E.C. PO SCH ×2 (10:23→21:50)
[2016-09-05] MEDS: PRENATAL VITAMINS W/ FOLIC ACID TABLET (FP) PO SCH (10:23)
[2016-09-05] MEDS: CITALOPRAM HYDROBROMIDE 10 MG TABLET (FP) PO SCH (10:23)
[2016-09-05] MEDS: RANITIDINE HCL 150 MG TABLET (FP) PO SCH ×2 (10:23→21:49)
[2016-09-05] MEDS: CYCLOBENZAPRINE HCL 10 MG TABLET (FP) PO PRN ×2 (10:24→21:49)
[2016-09-05] MEDS ORDERED: IBUPROFEN 400 MG TABLET (FP) PO PRN (14:21)
[2016-09-05] MEDS: cloNIDine HCL 0.1 MG TABLET PO SCH ×2 (15:53→21:49)
[2016-09-05] MEDS: THIAMINE HCL 100 MG TABLET (FP) PO SCH (21:49)
[2016-09-05] MEDS: QUEtiapine FUMARATE 200 MG TABLET PO SCH (21:50)
[2016-09-05] MEDS ORDERED: cloNIDine HCL 0.1 MG TABLET PO SCH (22:00)
[2016-09-06] MEDS: AMOX TR/POT CLAV 875MG/125MG TABLETS (FP) PO SCH ×2 (07:00→17:59)
[2016-09-06] MEDS: PRENATAL VITAMINS W/ FOLIC ACID TABLET (FP) PO SCH (09:46)
[2016-09-06] MEDS: cloNIDine HCL 0.1 MG TABLET PO SCH ×2 (09:46→22:13)
[2016-09-06] MEDS: RANITIDINE HCL 150 MG TABLET (FP) PO SCH ×2 (09:46→22:13)
[2016-09-06] MEDS: DIVALPROEX SODIUM 500 MG TABLET E.C. PO SCH ×2 (09:46→22:14)
[2016-09-06] MEDS: CITALOPRAM HYDROBROMIDE 10 MG TABLET (FP) PO SCH (09:46)
[2016-09-06] MEDS: BENZTROPINE MESYLATE 1 MG TABLET (FP) PO SCH ×2 (09:47→22:14)
[2016-09-06] MEDS: QUEtiapine FUMARATE 200 MG TABLET PO SCH (22:13)
[2016-09-06] MEDS: CYCLOBENZAPRINE HCL 10 MG TABLET (FP) PO PRN (22:13)
[2016-09-06] MEDS: THIAMINE HCL 100 MG TABLET (FP) PO SCH (22:14)
[2016-09-07] MEDS: AMOX TR/POT CLAV 875MG/125MG TABLETS (FP) PO SCH ×2 (07:00→17:30)
[2016-09-07] MEDS: RANITIDINE HCL 150 MG TABLET (FP) PO SCH ×2 (09:45→21:40)
[2016-09-07] MEDS: CITALOPRAM HYDROBROMIDE 10 MG TABLET (FP) PO SCH (09:45)
[2016-09-07] MEDS: cloNIDine HCL 0.1 MG TABLET PO SCH ×2 (09:45→21:40)
[2016-09-07] MEDS: DIVALPROEX SODIUM 500 MG TABLET E.C. PO SCH ×2 (09:45→21:39)
[2016-09-07] MEDS: BENZTROPINE MESYLATE 1 MG TABLET (FP) PO SCH ×2 (09:45→22:14)
[2016-09-07] MEDS: PRENATAL VITAMINS W/ FOLIC ACID TABLET (FP) PO SCH (09:45)
[2016-09-07] MEDS: QUEtiapine FUMARATE 200 MG TABLET PO SCH (21:39)
[2016-09-07] MEDS: diphenhydrAMINE HCL 50 MG CAPSULE PO PRN (21:41)
[2016-09-07] MEDS: THIAMINE HCL 100 MG TABLET (FP) PO SCH (22:14)
[2016-09-08] MEDS: AMOX TR/POT CLAV 875MG/125MG TABLETS (FP) PO SCH ×2 (07:24→17:34)
[2016-09-08] MEDS: BENZTROPINE MESYLATE 1 MG TABLET (FP) PO SCH ×2 (10:05→21:52)
[2016-09-08] MEDS: DIVALPROEX SODIUM 500 MG TABLET E.C. PO SCH ×2 (10:05→21:52)
[2016-09-08] MEDS: PRENATAL VITAMINS W/ FOLIC ACID TABLET (FP) PO SCH (10:05)
[2016-09-08] MEDS: CITALOPRAM HYDROBROMIDE 10 MG TABLET (FP) PO SCH (10:05)
[2016-09-08] MEDS: RANITIDINE HCL 150 MG TABLET (FP) PO SCH ×2 (10:05→21:52)
[2016-09-08] MEDS: QUEtiapine FUMARATE 200 MG TABLET PO SCH (21:52)
[2016-09-08] MEDS: THIAMINE HCL 100 MG TABLET (FP) PO SCH (21:52)
[2016-09-08] MEDS: diphenhydrAMINE HCL 50 MG CAPSULE PO PRN (21:53)
[2016-09-09] MEDS: AMOX TR/POT CLAV 875MG/125MG TABLETS (FP) PO SCH ×2 (07:00→17:02)
[2016-09-09] MEDS: PRENATAL VITAMINS W/ FOLIC ACID TABLET (FP) PO SCH (09:45)
[2016-09-09] MEDS: BENZTROPINE MESYLATE 1 MG TABLET (FP) PO SCH ×2 (09:45→22:05)
[2016-09-09] MEDS: RANITIDINE HCL 150 MG TABLET (FP) PO SCH ×2 (09:45→21:40)
[2016-09-09] MEDS: CITALOPRAM HYDROBROMIDE 10 MG TABLET (FP) PO SCH (09:45)
[2016-09-09] MEDS: DIVALPROEX SODIUM 500 MG TABLET E.C. PO SCH ×2 (09:45→21:40)
[2016-09-09] MEDS: THIAMINE HCL 100 MG TABLET (FP) PO SCH (21:40)
[2016-09-09] MEDS: QUEtiapine FUMARATE 200 MG TABLET PO SCH (21:40)
[2016-09-09] MEDS: CYCLOBENZAPRINE HCL 10 MG TABLET (FP) PO PRN (21:41)
[2016-09-10] MEDS: AMOX TR/POT CLAV 875MG/125MG TABLETS (FP) PO SCH ×2 (07:11→19:34)
[2016-09-10] MEDS: CITALOPRAM HYDROBROMIDE 10 MG TABLET (FP) PO SCH (09:47)
[2016-09-10] MEDS: RANITIDINE HCL 150 MG TABLET (FP) PO SCH ×2 (09:47→21:08)
[2016-09-10] MEDS: DIVALPROEX SODIUM 500 MG TABLET E.C. PO SCH ×2 (09:47→21:09)
[2016-09-10] MEDS: BENZTROPINE MESYLATE 1 MG TABLET (FP) PO SCH ×2 (09:47→21:09)
[2016-09-10] MEDS: PRENATAL VITAMINS W/ FOLIC ACID TABLET (FP) PO SCH (09:47)
[2016-09-10] MEDS: CYCLOBENZAPRINE HCL 10 MG TABLET (FP) PO PRN ×2 (09:48→21:08)
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
[2016-09-10] MEDS ORDERED: BENZTROPINE MESYLATE 1 MG TABLET (FP) PO SCH (14:25)
[2016-09-10] MEDS: THIAMINE HCL 100 MG TABLET (FP) PO SCH (21:08)
[2016-09-10] MEDS: QUEtiapine FUMARATE 200 MG TABLET PO SCH (21:09)
[2016-09-11] MEDS: BENZTROPINE MESYLATE 1 MG TABLET (FP) PO SCH ×2 (10:11→21:31)
[2016-09-11] MEDS: RANITIDINE HCL 150 MG TABLET (FP) PO SCH ×2 (10:11→21:32)
[2016-09-11] MEDS: PRENATAL VITAMINS W/ FOLIC ACID TABLET (FP) PO SCH (10:11)
[2016-09-11] MEDS: DIVALPROEX SODIUM 500 MG TABLET E.C. PO SCH ×2 (10:11→21:31)
[2016-09-11] MEDS: CITALOPRAM HYDROBROMIDE 10 MG TABLET (FP) PO SCH (10:11)
[2016-09-11] MEDS: QUEtiapine FUMARATE 200 MG TABLET PO SCH ×2 (10:12→21:31)
[2016-09-11] MEDS: CYCLOBENZAPRINE HCL 10 MG TABLET (FP) PO PRN ×2 (10:13→21:32)
[2016-09-11] MEDS: THIAMINE HCL 100 MG TABLET (FP) PO SCH (21:31)
[2016-09-12] MEDS: RANITIDINE HCL 150 MG TABLET (FP) PO SCH ×2 (10:10→21:37)
[2016-09-12] MEDS: DIVALPROEX SODIUM 500 MG TABLET E.C. PO SCH ×2 (10:10→21:37)
[2016-09-12] MEDS: CITALOPRAM HYDROBROMIDE 10 MG TABLET (FP) PO SCH (10:10)
[2016-09-12] MEDS: PRENATAL VITAMINS W/ FOLIC ACID TABLET (FP) PO SCH (10:10)
[2016-09-12] MEDS: QUEtiapine FUMARATE 200 MG TABLET PO SCH ×2 (10:11→21:37)
[2016-09-12] MEDS: BENZTROPINE MESYLATE 1 MG TABLET (FP) PO SCH ×2 (10:11→21:37)
[2016-09-12] MEDS: CYCLOBENZAPRINE HCL 10 MG TABLET (FP) PO PRN ×2 (10:12→21:37)
[2016-09-12] MEDS: THIAMINE HCL 100 MG TABLET (FP) PO SCH (21:37)
[2016-09-12] MEDS: diphenhydrAMINE HCL 50 MG CAPSULE PO PRN (21:37)
[2016-09-13] MEDS: CITALOPRAM HYDROBROMIDE 10 MG TABLET (FP) PO SCH (09:42)
[2016-09-13] MEDS: DIVALPROEX SODIUM 500 MG TABLET E.C. PO SCH ×2 (09:42→21:15)
[2016-09-13] MEDS: RANITIDINE HCL 150 MG TABLET (FP) PO SCH ×2 (09:42→21:15)
[2016-09-13] MEDS: QUEtiapine FUMARATE 200 MG TABLET PO SCH ×2 (09:42→21:15)
[2016-09-13] MEDS: CYCLOBENZAPRINE HCL 10 MG TABLET (FP) PO PRN ×2 (09:42→21:14)
[2016-09-13] MEDS: BENZTROPINE MESYLATE 1 MG TABLET (FP) PO SCH ×2 (09:42→21:15)
[2016-09-13] MEDS: PRENATAL VITAMINS W/ FOLIC ACID TABLET (FP) PO SCH (09:43)
[2016-09-13] MEDS: THIAMINE HCL 100 MG TABLET (FP) PO SCH (21:14)
[2016-09-14] MEDS: RANITIDINE HCL 150 MG TABLET (FP) PO SCH ×2 (09:51→21:45)
[2016-09-14] MEDS: CITALOPRAM HYDROBROMIDE 10 MG TABLET (FP) PO SCH (09:51)
[2016-09-14] MEDS: BENZTROPINE MESYLATE 1 MG TABLET (FP) PO SCH ×2 (09:51→21:45)
[2016-09-14] MEDS: PRENATAL VITAMINS W/ FOLIC ACID TABLET (FP) PO SCH (09:51)
[2016-09-14] MEDS: QUEtiapine FUMARATE 200 MG TABLET PO SCH ×2 (09:51→21:45)
[2016-09-14] MEDS: DIVALPROEX SODIUM 500 MG TABLET E.C. PO SCH ×2 (09:52→21:45)
[2016-09-14] MEDS: CYCLOBENZAPRINE HCL 10 MG TABLET (FP) PO PRN ×2 (09:52→21:45)
[2016-09-14] MEDS: THIAMINE HCL 100 MG TABLET (FP) PO SCH (21:45)
[2016-09-14] MEDS: diphenhydrAMINE HCL 50 MG CAPSULE PO PRN (21:46)
[2016-09-15] MEDS: PRENATAL VITAMINS W/ FOLIC ACID TABLET (FP) PO SCH (10:09)
[2016-09-15] MEDS: DIVALPROEX SODIUM 500 MG TABLET E.C. PO SCH ×2 (10:09→21:41)
[2016-09-15] MEDS: QUEtiapine FUMARATE 200 MG TABLET PO SCH ×2 (10:09→21:41)
[2016-09-15] MEDS: BENZTROPINE MESYLATE 1 MG TABLET (FP) PO SCH ×2 (10:10→21:41)
[2016-09-15] MEDS: CITALOPRAM HYDROBROMIDE 10 MG TABLET (FP) PO SCH (10:10)
[2016-09-15] MEDS: RANITIDINE HCL 150 MG TABLET (FP) PO SCH ×2 (10:10→21:41)
[2016-09-15] MEDS: CYCLOBENZAPRINE HCL 10 MG TABLET (FP) PO PRN ×2 (10:11→21:41)
[2016-09-15] MEDS: THIAMINE HCL 100 MG TABLET (FP) PO SCH (21:41)
[2016-09-16] MEDS: BENZTROPINE MESYLATE 1 MG TABLET (FP) PO SCH ×2 (10:07→21:54)
[2016-09-16] MEDS: RANITIDINE HCL 150 MG TABLET (FP) PO SCH ×2 (10:07→21:54)
[2016-09-16] MEDS: CITALOPRAM HYDROBROMIDE 10 MG TABLET (FP) PO SCH (10:07)
[2016-09-16] MEDS: QUEtiapine FUMARATE 200 MG TABLET PO SCH ×2 (10:07→21:54)
[2016-09-16] MEDS: PRENATAL VITAMINS W/ FOLIC ACID TABLET (FP) PO SCH (10:07)
[2016-09-16] MEDS: DIVALPROEX SODIUM 500 MG TABLET E.C. PO SCH ×2 (10:08→21:54)
[2016-09-16] MEDS: CYCLOBENZAPRINE HCL 10 MG TABLET (FP) PO PRN ×2 (10:09→21:54)
[2016-09-16] MEDS: diphenhydrAMINE HCL 50 MG CAPSULE PO PRN (21:54)
[2016-09-16] MEDS: THIAMINE HCL 100 MG TABLET (FP) PO SCH (21:54)
[2016-09-17] MEDS: RANITIDINE HCL 150 MG TABLET (FP) PO SCH ×2 (10:33→21:48)
[2016-09-17] MEDS: BENZTROPINE MESYLATE 1 MG TABLET (FP) PO SCH ×2 (10:33→21:48)
[2016-09-17] MEDS: PRENATAL VITAMINS W/ FOLIC ACID TABLET (FP) PO SCH (10:34)
[2016-09-17] MEDS: CITALOPRAM HYDROBROMIDE 10 MG TABLET (FP) PO SCH (10:34)
[2016-09-17] MEDS: DIVALPROEX SODIUM 500 MG TABLET E.C. PO SCH ×2 (10:34→21:48)
[2016-09-17] MEDS: QUEtiapine FUMARATE 200 MG TABLET PO SCH ×2 (10:34→21:48)
[2016-09-17] MEDS: CYCLOBENZAPRINE HCL 10 MG TABLET (FP) PO PRN ×2 (10:35→21:49)
[2016-09-17] MEDS: THIAMINE HCL 100 MG TABLET (FP) PO SCH (21:48)
[2016-09-17] MEDS: diphenhydrAMINE HCL 50 MG CAPSULE PO PRN (21:49)
[2016-09-18] MEDS: PRENATAL VITAMINS W/ FOLIC ACID TABLET (FP) PO SCH (10:12)
[2016-09-18] MEDS: RANITIDINE HCL 150 MG TABLET (FP) PO SCH ×2 (10:12→21:28)
[2016-09-18] MEDS: DIVALPROEX SODIUM 500 MG TABLET E.C. PO SCH ×2 (10:12→21:28)
[2016-09-18] MEDS: CITALOPRAM HYDROBROMIDE 10 MG TABLET (FP) PO SCH (10:13)
[2016-09-18] MEDS: CYCLOBENZAPRINE HCL 10 MG TABLET (FP) PO PRN ×2 (10:13→21:28)
[2016-09-18] MEDS: BENZTROPINE MESYLATE 1 MG TABLET (FP) PO SCH ×2 (10:13→21:28)
[2016-09-18] MEDS: QUEtiapine FUMARATE 200 MG TABLET PO SCH ×2 (10:13→21:28)
[2016-09-18] MEDS: THIAMINE HCL 100 MG TABLET (FP) PO SCH (21:28)
[2016-09-18] MEDS: diphenhydrAMINE HCL 50 MG CAPSULE PO PRN (21:29)
[2016-09-19] MEDS: PRENATAL VITAMINS W/ FOLIC ACID TABLET (FP) PO SCH (10:23)
[2016-09-19] MEDS: DIVALPROEX SODIUM 500 MG TABLET E.C. PO SCH ×2 (10:23→21:50)
[2016-09-19] MEDS: CITALOPRAM HYDROBROMIDE 10 MG TABLET (FP) PO SCH (10:23)
[2016-09-19] MEDS: BENZTROPINE MESYLATE 1 MG TABLET (FP) PO SCH ×2 (10:23→21:50)
[2016-09-19] MEDS: RANITIDINE HCL 150 MG TABLET (FP) PO SCH ×2 (10:23→21:50)
[2016-09-19] MEDS: QUEtiapine FUMARATE 200 MG TABLET PO SCH ×2 (10:23→21:50)
[2016-09-19] MEDS: CYCLOBENZAPRINE HCL 10 MG TABLET (FP) PO PRN ×2 (10:24→21:51)
[2016-09-19] MEDS: THIAMINE HCL 100 MG TABLET (FP) PO SCH (21:50)
[2016-09-20] MEDS: CYCLOBENZAPRINE HCL 10 MG TABLET (FP) PO PRN ×2 (10:28→22:10)
[2016-09-20] MEDS: BENZTROPINE MESYLATE 1 MG TABLET (FP) PO SCH ×2 (10:28→22:10)
[2016-09-20] MEDS: PRENATAL VITAMINS W/ FOLIC ACID TABLET (FP) PO SCH (10:28)
[2016-09-20] MEDS: QUEtiapine FUMARATE 200 MG TABLET PO SCH ×2 (10:28→22:09)
[2016-09-20] MEDS: DIVALPROEX SODIUM 500 MG TABLET E.C. PO SCH ×2 (10:28→22:10)
[2016-09-20] MEDS: CITALOPRAM HYDROBROMIDE 10 MG TABLET (FP) PO SCH (10:28)
[2016-09-20] MEDS: RANITIDINE HCL 150 MG TABLET (FP) PO SCH ×2 (10:28→22:09)
[2016-09-20] MEDS: THIAMINE HCL 100 MG TABLET (FP) PO SCH (22:10)
[2016-09-20] MEDS: diphenhydrAMINE HCL 50 MG CAPSULE PO PRN (22:10)
[2016-09-21] MEDS: PRENATAL VITAMINS W/ FOLIC ACID TABLET (FP) PO SCH (10:02)
[2016-09-21] MEDS: RANITIDINE HCL 150 MG TABLET (FP) PO SCH ×2 (10:02→21:23)
[2016-09-21] MEDS: BENZTROPINE MESYLATE 1 MG TABLET (FP) PO SCH ×2 (10:02→21:23)
[2016-09-21] MEDS: DIVALPROEX SODIUM 500 MG TABLET E.C. PO SCH ×2 (10:02→21:23)
[2016-09-21] MEDS: CITALOPRAM HYDROBROMIDE 10 MG TABLET (FP) PO SCH (10:02)
[2016-09-21] MEDS: QUEtiapine FUMARATE 200 MG TABLET PO SCH ×2 (10:03→21:23)
[2016-09-21] MEDS: CYCLOBENZAPRINE HCL 10 MG TABLET (FP) PO PRN ×2 (10:04→21:23)
[2016-09-21] MEDS: diphenhydrAMINE HCL 50 MG CAPSULE PO PRN (21:23)
[2016-09-21] MEDS: THIAMINE HCL 100 MG TABLET (FP) PO SCH (21:23)
[2016-09-22] MEDS: RANITIDINE HCL 150 MG TABLET (FP) PO SCH ×2 (09:55→21:07)
[2016-09-22] MEDS: BENZTROPINE MESYLATE 1 MG TABLET (FP) PO SCH ×2 (09:55→21:07)
[2016-09-22] MEDS: PRENATAL VITAMINS W/ FOLIC ACID TABLET (FP) PO SCH (09:55)
[2016-09-22] MEDS: QUEtiapine FUMARATE 200 MG TABLET PO SCH ×2 (09:56→21:07)
[2016-09-22] MEDS: CITALOPRAM HYDROBROMIDE 10 MG TABLET (FP) PO SCH (09:56)
[2016-09-22] MEDS: DIVALPROEX SODIUM 500 MG TABLET E.C. PO SCH ×2 (09:56→21:07)
[2016-09-22] MEDS: CYCLOBENZAPRINE HCL 10 MG TABLET (FP) PO PRN ×2 (09:57→21:08)
[2016-09-22] MEDS: THIAMINE HCL 100 MG TABLET (FP) PO SCH (21:07)
[2016-09-22] MEDS: diphenhydrAMINE HCL 50 MG CAPSULE PO PRN (21:08)
[2016-09-23] MEDS: PRENATAL VITAMINS W/ FOLIC ACID TABLET (FP) PO SCH (10:31)
[2016-09-23] MEDS: DIVALPROEX SODIUM 500 MG TABLET E.C. PO SCH ×2 (10:31→21:09)
[2016-09-23] MEDS: CYCLOBENZAPRINE HCL 10 MG TABLET (FP) PO PRN ×2 (10:31→21:08)
[2016-09-23] MEDS: QUEtiapine FUMARATE 200 MG TABLET PO SCH ×2 (10:31→21:09)
[2016-09-23] MEDS: CITALOPRAM HYDROBROMIDE 10 MG TABLET (FP) PO SCH (10:32)
[2016-09-23] MEDS: BENZTROPINE MESYLATE 1 MG TABLET (FP) PO SCH ×2 (10:32→21:09)
[2016-09-23] MEDS: RANITIDINE HCL 150 MG TABLET (FP) PO SCH ×2 (10:32→21:08)
[2016-09-23] MEDS: diphenhydrAMINE HCL 50 MG CAPSULE PO PRN (21:08)
[2016-09-23] MEDS: THIAMINE HCL 100 MG TABLET (FP) PO SCH (22:23)
[2016-09-24 06:55] VITALS: BP 133/72; PULSE 79; TEMP 97.9
[2016-09-24] MEDS: DIVALPROEX SODIUM 500 MG TABLET E.C. PO SCH (09:54)
[2016-09-24] MEDS: PRENATAL VITAMINS W/ FOLIC ACID TABLET (FP) PO SCH (09:54)
[2016-09-24] MEDS: QUEtiapine FUMARATE 200 MG TABLET PO SCH (09:54)
[2016-09-24] MEDS: RANITIDINE HCL 150 MG TABLET (FP) PO SCH (09:55)
[2016-09-24] MEDS: CYCLOBENZAPRINE HCL 10 MG TABLET (FP) PO PRN (09:55)
[2016-09-24] MEDS: BENZTROPINE MESYLATE 1 MG TABLET (FP) PO SCH (09:55)
[2016-09-24] MEDS: CITALOPRAM HYDROBROMIDE 10 MG TABLET (FP) PO SCH (09:55)
--- NOTE | 2016-09-24 10:12 | PN ---
Psychiatric Progress Note Vital Signs: Vital Signs Period Temp Pulse Resp BP Sys/Lamas Pulse Ox Last 24 Hr 97.9 F 79 18-18 133/72 Date of Session: 09/24/16 Chief Complaint:: discharge visit HPI: Patient has addressed cannabis, alcohol, cocaine, nicotine dependence comorbid PTSD, Bipolar disorded. ROS: WNL Current Medications: Active Medications Generic Name Dose Route Start Last Admin Trade Name Freq PRN Reason Stop Dose Admin Acetaminophen 650 mg 09/02/16 12:09 09/04/16 09:53 Tylenol - PO 650 mg Q4H PRN Administration FEVER OR PAIN Al Hydroxide/Mg Hydroxide 30 ml 09/02/16 12:09 Mylanta Oral Suspension - PO Q6H PRN DYSPEPSIA Benztropine Mesylate 1 mg 09/10/16 22:00 09/24/16 09:55 Cogentin - PO 1 mg BID ADENIKE Administration Citalopram Hydrobromide 10 mg 09/02/16 12:45 09/24/16 09:55 Celexa - PO 10 mg DAILY ADENIKE Administration Cyclobenzaprine HCl 10 mg 09/09/16 13:07 09/24/16 09:55 Flexeril - PO 10 mg TID PRN Administration MUSCLE SPASMS Diphenhydramine HCl 50 mg 09/02/16 12:09 09/23/16 21:08 Benadryl - PO 50 mg HSMR1 PRN Administration FOR ITCHING Divalproex Sodium 500 mg 09/02/16 13:45 09/24/16 09:54 Depakote - PO 500 mg BID ADENIKE Administration Eucalyptus/Menthol/Phenol/Sorbitol 1 each 09/02/16 12:09 Cepastat Lozenge - MM Q4H PRN SORE THROAT Guaifenesin 10 ml 09/02/16 12:09 Robitussin Dm - PO Q6H PRN COUGH Hydrocortisone 1 applic 09/03/16 12:54 09/11/16 10:14 Hytone 1% Cream - TP 1 applic BID PRN Administration DRY SKIN Hydroxyzine Pamoate 50 mg 09/02/16 12:09 Vistaril - PO Q4H PRN AGITATION Ibuprofen 800 mg 09/05/16 14:21 Motrin - PO Q6H PRN PAIN Loperamide HCl 4 mg 09/02/16 12:09 Imodium - PO Q6H PRN DIARRHEA Magnesium Hydroxide 30 ml 09/02/16 12:09 Milk Of Magnesia - PO DAILY PRN CONSTIPATION Multivit/Folic Acid/Iron 1 tab 09/03/16 10:00 09/24/16 09:54 Vitamins (Sjr) - PO 1 tab DAILY ADENIKE Administration Pseudoephedrine/Triprolidine 1 combo 09/02/16 12:09 Actifed - PO TID PRN NASAL CONGESTION Quetiapine Fumarate 200 mg 09/02/16 22:00 09/23/16 21:09 Seroquel - PO 200 mg HS ADENIKE Administration Quetiapine Fumarate 200 mg 09/11/16 10:00 09/24/16 09:54 Seroquel - PO 200 mg DAILY ADENIKE Administration Ranitidine HCl 150 mg 09/02/16 22:00 09/24/16 09:55 Zantac - PO 150 mg BID ADENIKE Administration Thiamine HCl 100 mg 09/02/16 22:00 09/23/16 22:23 Vitamin B1 - PO 100 mg HS ADENIKE Administration Current Side Effect: No Lab tests ordered: No Lab tests reviewed: Yes Provider note:: Patient has completed today this inpatient rehabilitation program and met his goals, will continue to address his issues at [facility] long term care pharmacist treatment program. Patient gained insights into his problem and motiated to continue maintain abstinencehe, he identified behaviors which contributes to relapse and verbalized resolution to stay sober and adherent to every aspects of his aftercare treatment plan. He reports that Seroquel, Celexa and Depakote have been effective for the managmenet of his psychiatric issuess, medications well tolerated no side effects reported, scripts provided for 30 days. Patient is stable for discharge today. Total face to face time:: 35 Mental Status Exam - Mental Status Exam Alert and Oriented to: Time, Place, Person Cognitive Function: Good Patient Appearance: Well Groomed Mood: Hopeful Affect: Appropriate, Mood Congruent Patient Behavior: Appropriate, Cooperative Speech Pattern: Clear, Appropriate Voice Loudness: Normal Thought Process: Intact, Goal Oriented Thought Disorder: Not Present Hallucinations: Denies Suicidal Ideation: Denies Homicidal Ideation: Denies Insight/Judgement: Fair Sleep: Fair Appetite: Fair Muscle strength/Tone: Normal Gait/Station: Normal Psychiatric Treatment Plan - Problem List (1) Alcohol dependence with uncomplicated withdrawal Current Visit: No (2) Cannabis dependence Current Visit: No Comment: K2 USE (3) Cocaine dependence, uncomplicated Current Visit: No (4) Nicotine dependence Current Visit: No Qualifiers: Nicotine product type: cigarettes Substance use status: uncomplicated Qualified Code(s): F17.210 - Nicotine dependence, cigarettes, uncomplicated (5) Opioid dependence Current Visit: No (6) PTSD (post-traumatic stress disorder) Current Visit: No (7) Bipolar I disorder, most recent episode depressed Current Visit: Yes
== END 2016-09-24 10:15 | disposition home or self-care (01) | DRG 772 ==
LOC: YASAS 11:19 → Y5N 11:20
PROVIDERS: ADMIT Psychiatry & Neurology Psychiatry; ATTEND Psychiatry & Neurology Psychiatry
PROC: HZ42ZZZ Group Counseling for Substance Abuse Treatment, Cognitive-Behavioral (ICD-10-PCS; principal; 2016-09-02)
DX: F11.20 Opioid dependence, uncomplicated (principal); F10.20 Alcohol dependence, uncomplicated; F13.20 Sedative, hypnotic or anxiolytic dependence, uncomplicated; F14.20 Cocaine dependence, uncomplicated; F12.20 Cannabis dependence, uncomplicated; F17.210 Nicotine dependence, cigarettes, uncomplicated; F43.10 Post-traumatic stress disorder, unspecified; F31.9 Bipolar disorder, unspecified; L21.9 Seborrheic dermatitis, unspecified; J02.9 Acute pharyngitis, unspecified

== ENCOUNTER 2017-06-07 11:58 | Inpatient (IN) | payer OTHER ==
[2017-06-07 12:48] VITALS: BMI 28.3
--- NOTE | 2017-06-07 14:12 | HP ---
COWS - Scale Resting Pulse: 1= MN 81-100 Sweatin= Chills/Flushing Restless Observation: 1= Difficult to Sit Still Pupil Size: 0= Normal to Room Light Bone or Joint Aches: 1= Mild Discomfort Runny Nose/ Eye Tearin= Nasal Congestion GI Upset > 30mins: 1= Stomach Cramp Tremor Observation: 1= Tremor [place], Not Seen Yawning Observation: 1= 1-2x During Session Anxiety or Irritability: 1=Feels Anxious/Irritable Goose Flesh Skin: 0=Smooth Skin COWS Score: 9 CIWA Score - CIWA Score Nausea/Vomitin-Mild Nausea/No Vomiting Muscle Tremors: 4-Moderate,w/Arms Extend Anxiety: 1-Mildly Anxious Agitation: 1-Slight > Activity Paroxysmal Sweats: 1-Minimal Palms Moist Orientation: 1-Uncertain about Date Tacttile Disturbances: 1-Very Mild Itch/Numbness Auditory Disturbances: 1-Very Mild Visual Disturbances: 1-Very Mild Sensitivity Headache: 1-Very Mild CIWA-Ar Total Score: 13 Admission ROS S - HPI Chief Complaint: I want to stop using - my grandchildren are coming to visit and I want to be clean for them Allergies/Adverse Reactions: Allergies Allergy/AdvReac Type Severity Reaction Status Date / Time fish derived [Fish derived] Allergy Severe Swelling Verified 09/02/16 11:35 No Known Drug Allergies Allergy Verified 09/02/16 11:35 History of Present Illness: 47 y gentleman here for detox from alcohol, heroin - no seizures, history methadone in the past (180mg), last time in detox was here in august 2016. Exam Limitations: Clinical Condition - Ebola screening Have you traveled outside of the country in the last 21 days: No Have you had contact with anyone from an Ebola affected area: No Have you been sick,other than usual withdrawal symptoms: No Do you have a fever: No - Review of Systems Constitutional: Loss of Appetite, Night Sweats, Changes in sleep, Weakness, Unintentional Wgt. Loss EENT: reports: Blurred Vision, Nose Congestion Respiratory: reports: No Symptoms reported Cardiac: reports: No Symptoms Reported GI: reports: Nausea, Poor Appetite : reports: No Symptoms Reported Musculoskeletal: reports: Back Pain, Joint Pain, Muscle Pain Integumentary: reports: No Symptoms Reported Neuro: reports: Headache Endocrine: reports: No Symptoms Reported Hematology: reports: No Symptoms Reported Psychiatric: reports: Judgement Intact, Mood/Affect Appropiate, Anxious Other Systems: Reviewed and Negative Patient History - Patient Medical History Hx Anemia: No Hx Asthma: No Hx Chronic Obstructive Pulmonary Disease (COPD): No Hx Cancer: No Hx Cardiac Disorders: No Hx Congestive Heart Failure: No Hx Hypertension: No Hx Hypercholesterolemia: No Hx Pacemaker: No HX Cerebrovascular Accident: No Hx Seizures: No Hx Dementia: No Hx Diabetes: No Hx Gastrointestinal Disorders: No Hx Liver Disease: No Hx Genitourinary Disorders: No Hx Sexually Transmitted Disorders: No Hx Renal Disease (ESRD): No Hx Thyroid Disease: No Hx Human Immunodeficiency Virus (HIV): No Hx Hepatitis C: Yes (not treated) Hx Depression: Yes Hx Suicide Attempt: Yes (last time 2007, cut wrists) Hx Bipolar Disorder: No (history hospitalizations - last 2012 [facility]) Hx Schizophrenia: No - Patient Surgical History Past Surgical History: No Hx Neurologic Surgery: No Hx Cataract Extraction: No Hx Cardiac Surgery: No Hx Lung Surgery: No Hx Breast Surgery: No Hx Breast Biopsy: No Hx Abdominal Surgery: No Hx Appendectomy: No Hx Cholecystectomy: No Hx Genitourinary Surgery: No Hx Section: No Hx Orthopedic Surgery: No Anesthesia Reaction: No - PPD History Previous Implant?: Yes Documented Results: Positive w/proof Implanted On Prior [facility] Admission?: No Date: 04/05/15 ([facility] 05/27/16 normal) Results: 10MM PPD to be Administered?: No - Reproductive History Patient is a Female of Child Bearing Age (11 -55 yrs old): No (male) - Smoking Cessation Smoking history: Current every day smoker Have you smoked in the past 12 months: Yes Aproximately how many cigarettes per day: 20 Hx Chewing Tobacco Use: No Initiated information on smoking cessation: Yes 'Breaking Loose' booklet given: 06/07/17 (give on floor) - Substance & Tx. History Hx Alcohol Use: Yes Hx Substance Use: Yes Substance Use Type: Alcohol, Cocaine, Heroin Hx Substance Use Treatment: Yes (detox, rehab, methadone, suboxone) - Substances Abused Alcohol Route: Oral Frequency: Daily Amount used: two six packs 22 oz beer Age of first use: 12 Date of Last Use: 06/07/17 Heroin Route: Injection Frequency: Daily Amount used: 10 bags Age of first use: 12 Date of Last Use: 06/07/17 Cocaine Route: Injection Frequency: Daily Amount used: 1gm Age of first use: 12 Date of Last Use: 06/07/17 Family Disease History - Family Disease History Family Disease History: Diabetes: Grandparent, Father (ALCOHOL,), Other : Father, Mother (don't know her), Brother (two living - healthy), Sister (two living - one with COPD), Son (two living - healthy), Daughter (two living - healthy) [facility]ital Signs Vital Signs: Vital Signs - 24 hr 06/07/17 12:45 Temperature 98.3 F Pulse Rate 81 Respiratory 19 Rate Blood Pressure 126/73 - Physical General Appearance: Yes: Nourished, Appropriately Dressed, Mild Distress HEENTM: Yes: Hearing grossly Normal, Normocephalic, Normal Voice, Pharynx Normal Respiratory: Yes: Normal Breath Sounds, No Respiratory Distress Neck: Yes: No masses,lesions,Nodules, Supple Breast: Yes: Breast Exam Deferred Cardiology: Yes: Regular Rhythm, Regular Rate Abdominal: Yes: Soft Genitourinary: Yes: Frequency Back: Yes: Normal Inspection Musculoskeletal: Yes: full range of Motion, Gait Steady Extremities: Yes: Normal Inspection Neurological: Yes: Fully Oriented, Alert, Normal Mood/Affect, Normal Response Integumentary: Yes: Normal Color, Warm, Track Tracy (bilateral carotids - no abscess noted) Lymphatic: Yes: Within Normal Limits - Diagnostic (1) Opioid dependence with withdrawal Current Visit: Yes Status: Chronic (2) Alcohol dependence with uncomplicated withdrawal Current Visit: Yes Status: Chronic (3) Cocaine dependence, uncomplicated Current Visit: Yes Status: Chronic (4) Nicotine dependence Current Visit: Yes Status: Chronic Qualifiers: Nicotine product type: cigarettes Substance use status: uncomplicated Qualified Code(s): F17.210 - Nicotine dependence, cigarettes, uncomplicated; F17.210 - Nicotine dependence, cigarettes, uncomplicated (5) Weight loss Current Visit: Yes Status: Chronic (6) Hepatitis C Current Visit: Yes Status: Chronic Qualifiers: Viral hepatitis chronicity: chronic Hepatic coma status: without hepatic coma Qualified Code(s): B18.2 - Chronic viral hepatitis C; B18.2 - Chronic viral hepatitis C; B18.2 - Chronic viral hepatitis C; B18.2 - Chronic viral hepatitis C (7) PPD positive, treated Current Visit: Yes Status: Chronic [facility] Breath Alcohol Content Breath Alcohol Content: 0 Urine Drug Screen - Results Drug Screen Negative: No Urine Drug Screen Results: THC-Marijuana, BLAZE-Cocaine, OPI-Opiates
[2017-06-07] MEDS ORDERED: chlordiazePOXIDE HCL 25 MG CAPSULE PO PRN (14:16)
[2017-06-07] MEDS ORDERED: MENTHOL/PHENOL 1 EACH UD MM PRN (14:16)
[2017-06-07] MEDS ORDERED: MAGNESIUM CITRATE 300 ML BOTTLE PO PRN (14:16)
[2017-06-07] MEDS ORDERED: P-EPHED 60MG/TRIPROLIDI 2.5MG TABLET PO PRN (14:16)
[2017-06-07] MEDS ORDERED: MAGNESIUM HYDROX 2400MG/30ML ORAL SUSPENSION 30 ML CUP PO PRN (14:16)
[2017-06-07] MEDS ORDERED: ACETAMINOPHEN 325 MG TABLET (FP) PO PRN (14:16)
[2017-06-07] MEDS ORDERED: LOPERAMIDE HCL 2 MG CAPSULE PO PRN (14:16)
[2017-06-07] MEDS ORDERED: MAG HYDROX/AL HYDROX/SIMETH 30 ML UNIT-DOSE CUP PO PRN (14:16)
[2017-06-07] MEDS ORDERED: guaiFENesin/D-METHORPHAN HB 10 ML UNIT-DOSE CUPS PO PRN (14:16)
[2017-06-07] MEDS ORDERED: METHADONE HCL 10 MG TABLET (FOR DETOX USE ONLY) PO ONE ×2 (15:15→23:00)
[2017-06-07] MEDS: chlordiazePOXIDE HCL 25 MG CAPSULE PO SCH ×2 (17:12→22:51)
[2017-06-07 20:18] LABS: URINE APPEARANCE CLEAR; URINE BILIRUBIN NEGATIVE (NEGATIVE); URINE BLOOD NEGATIVE (NEGATIVE); URINE COLOR YELLOW; URINE GLUCOSE (UA) NEGATIVE (NEGATIVE); URINE KETONE 1+ (NEGATIVE); URINE NITRITE NEGATIVE (NEGATIVE); URINE PROTEIN NEGATIVE (NEGATIVE); URINE UROBILINOGEN NEGATIVE mg/dL (0.2-1.0)
[2017-06-07 22:09] LABS: URINE LEUK ESTERASE Negative (NEGATIVE)
[2017-06-07] MEDS: THIAMINE HCL 100 MG TABLET (FP) PO SCH (22:51)
[2017-06-08] MEDS: chlordiazePOXIDE HCL 25 MG CAPSULE PO SCH ×4 (05:58→22:15)
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
[2017-06-08] MEDS ORDERED: METHADONE HCL 10 MG TABLET (FOR DETOX USE ONLY) PO SCH (10:00)
[2017-06-08] MEDS: PRENATAL VITAMINS W/ FOLIC ACID TABLET (FP) PO SCH (10:05)
[2017-06-08 10:23] LABS: MCH 29.3 pg (25.7-33.7); MCHC 32.7 g/dl (32.0-35.9); MEAN CELL VOLUME 89.6 fl (80-96); MEAN PLT VOLUME 8.7 fl (7.5-11.1); PLATELET COUNT 267 K/MM3 (134-434); WHITE BLOOD COUNT 7.5 K/mm3 (4.0-10.0)
[2017-06-08 10:30] LABS: ALBUMIN 3.5 g/dl (3.4-5.0); ALK PHOS 106 U/L (45-117); ANION GAP 9 (8-16); BILIRUBIN,TOTAL 0.5 mg/dL (0.2-1.0); CALCIUM 8.6 mg/dL (8.5-10.1); CO2 25 mmol/L (21-32); CREATININE 0.9 mg/dL (0.7-1.3); GLUCOSE,RANDOM 106 mg/dL (74-106); SGOT/AST 36 U/L (15-37); SGPT/ALT 34 U/L (12-78)
[2017-06-08] MEDS: CITALOPRAM HYDROBROMIDE 10 MG TABLET (FP) PO SCH (11:26)
[2017-06-08] MEDS: GABAPENTIN 300 MG CAPSULE (FP) PO SCH ×2 (11:26→22:15)
--- NOTE | 2017-06-08 16:32 | EKG ---
Test Reason : Blood Pressure : / mmHG Vent. Rate : 061 BPM Atrial Rate : 061 BPM P-R Int : 158 ms QRS Dur : 090 ms QT Int : 446 ms P-R-T Axes : 064 063 063 degrees QTc Int : 448 ms NORMAL SINUS RHYTHM PROBABLE EARLY REPOLARIZATION PATTERN NO PREVIOUS ECGS AVAILABLE Confirmed by ZHANG MARTINEZ MD ([id number] on 06/08/2017 4:32:01 PM Referred By: Confirmed By:ZHANG MARTINEZ MD
--- NOTE | 2017-06-08 19:52 | PN ---
[facility] CIWA - CIWA Score Nausea/Vomitin-Mild Nausea/No Vomiting Muscle Tremors: 3 Anxiety: 4-Mod. Anxious/Guarded Agitation: 3 Paroxysmal Sweats: 3 Orientation: 0-Oriented Tacttile Disturbances: 0-None Auditory Disturbances: 0-None Visual Disturbances: 0-None Headache: 0-None Present CIWA-Ar Total Score: 14 S COWS - Scale Resting Pulse: 0= MS 80 or Below Sweatin=Flushed/Facial Moisture Restless Observation: 1= Difficult to Sit Still Pupil Size: 0= Normal to Room Light Bone or Joint Aches: 1= Mild Discomfort Runny Nose/ Eye Tearin= Runny Nose/Eyes GI Upset > 30mins: 2= Nausea/Diarrhea Tremor Observation of Outstretched Hands: 2= Slight Tremor Visible Yawning Observation: 1= 1-2x During Session Anxiety or Irritability: 2=Irritable/Anxious Goose Flesh Skin: 0=Smooth Skin COWS Score: 13 [facility] Progress Note (SOAP) Subjective: Sweating,interrupted sleep,restless,tremors,anxiety Objective: 06/08/17 19:51 Vital Signs - 8 hr 06/08/17 06/08/17 13:47 17:46 Temperature 97.0 F L 97 F L Pulse Rate 68 57 L Respiratory 18 18 Rate Blood Pressure 100/54 93/51 Laboratory Tests 06/07/17 06/08/17 06/08/17 19:00 07:40 07:40 WBC 7.5 RBC 4.52 Hgb 13.2 Hct 40.5 MCV 89.6 MCH 29.3 MCHC 32.7 RDW 14.0 Plt Count 267 MPV 8.7 Sodium 136 Potassium 4.0 Chloride 102 Carbon Dioxide 25 Anion Gap 9 BUN 16 D Creatinine 0.9 Creat Clearance w eGFR > 60 Random Glucose 106 D Calcium 8.6 Total Bilirubin 0.5 D AST 36 D ALT 34 D Alkaline Phosphatase 106 Total Protein 7.0 Albumin 3.5 Urine Color Yellow Urine Appearance Clear Urine pH 5.0 Ur Specific [place] 1.025 Urine Protein Negative Urine Glucose (UA) Negative Urine Ketones 1+ H Urine Blood Negative Urine Nitrite Negative Urine Bilirubin Negative Urine Urobilinogen Negative Ur Leukocyte Esterase Negative RPR Titer 06/08/17 07:40 WBC RBC Hgb Hct MCV MCH MCHC RDW Plt Count MPV Sodium Potassium Chloride Carbon Dioxide Anion Gap BUN Creatinine Creat Clearance w eGFR Random Glucose Calcium Total Bilirubin AST ALT Alkaline Phosphatase Total Protein Albumin Urine Color Urine Appearance Urine pH Ur Specific [place] Urine Protein Urine Glucose (UA) Urine Ketones Urine Blood Urine Nitrite Urine Bilirubin Urine Urobilinogen Ur Leukocyte Esterase RPR Titer Nonreactive labs noted Assessment: 06/08/17 19:52 Withdrawal sx. Plan: Continue detox
[2017-06-08] MEDS: THIAMINE HCL 100 MG TABLET (FP) PO SCH (22:15)
[2017-06-08] MEDS: diphenhydrAMINE HCL 50 MG CAPSULE PO PRN (22:16)
[2017-06-09] MEDS: chlordiazePOXIDE HCL 25 MG CAPSULE PO SCH ×2 (05:37→10:05)
[2017-06-09] MEDS: PRENATAL VITAMINS W/ FOLIC ACID TABLET (FP) PO SCH (10:05)
[2017-06-09] MEDS: CITALOPRAM HYDROBROMIDE 10 MG TABLET (FP) PO SCH (10:05)
[2017-06-09] MEDS: METHADONE HCL 5 MG TABLET (FOR DETOX USE ONLY) PO SCH (10:05)
[2017-06-09] MEDS: GABAPENTIN 300 MG CAPSULE (FP) PO SCH ×2 (10:05→22:16)
--- NOTE | 2017-06-09 10:56 | PN ---
[facility] CIWA - CIWA Score Nausea/Vomitin-No Nausea/No Vomiting Muscle Tremors: 4-Moderate,w/Arms Extend Anxiety: 4-Mod. Anxious/Guarded Agitation: 4-Moderately Restless Paroxysmal Sweats: 1-Minimal Palms Moist Orientation: 0-Oriented Tacttile Disturbances: 3-Moderate Itch/Numb/Burn Auditory Disturbances: 0-None Visual Disturbances: 0-None Headache: 0-None Present CIWA-Ar Total Score: 16 [facility] COWS - Scale Resting Pulse: 1= [place] 81-100 Sweatin= Chills/Flushing Restless Observation: 3= Extraneous Movement Pupil Size: 2= Moderately Dilated Bone or Joint Aches: 4=Acute Joint/Muscle Pain Runny Nose/ Eye Tearin= Nasal Congestion GI Upset > 30mins: 1= Stomach Cramp Tremor Observation of Outstretched Hands: 1= Tremor [place], Not Seen Yawning Observation: 1= 1-2x During Session Anxiety or Irritability: 2=Irritable/Anxious Goose Flesh Skin: 0=Smooth Skin COWS Score: 17 [facility] Progress Note (SOAP) Subjective: ANXIETY,SWEATS/CHILLS,TREMORS,IRRITABILITY. Objective: 06/09/17 10:55 Vital Signs Temperature 98.4 F 06/09/17 10:52 Pulse Rate 85 06/09/17 10:52 Respiratory Rate 20 06/09/17 10:52 Blood Pressure 118/67 06/09/17 10:52 O2 Sat by Pulse Oximetry (%) Laboratory Last Values WBC 7.5 K/mm3 (4.0-10.0) 06/08/17 07:40 RBC 4.52 M/mm3 (4.00-5.60) 06/08/17 07:40 Hgb 13.2 GM/dL (11.7-16.9) 06/08/17 07:40 Hct 40.5 % (35.4-49) 06/08/17 07:40 MCV 89.6 fl (80-96) 06/08/17 07:40 MCH 29.3 pg (25.7-33.7) 06/08/17 07:40 MCHC 32.7 g/dl (32.0-35.9) 06/08/17 07:40 RDW 14.0 % (11.9-15.9) 06/08/17 07:40 Plt Count 267 K/MM3 (134-434) 06/08/17 07:40 MPV 8.7 fl (7.5-11.1) 06/08/17 07:40 Sodium 136 mmol/L (136-145) 06/08/17 07:40 Potassium 4.0 mmol/L (3.5-5.1) 06/08/17 07:40 Chloride 102 mmol/L (98-107) 06/08/17 07:40 Carbon Dioxide 25 mmol/L (21-32) 06/08/17 07:40 Anion Gap 9 (8-16) 06/08/17 07:40 BUN 16 mg/dL (7-18) D 06/08/17 07:40 Creatinine 0.9 mg/dL (0.7-1.3) 06/08/17 07:40 Creat Clearance w eGFR > 60 (>60) 06/08/17 07:40 Random Glucose 106 mg/dL (74-106) D 06/08/17 07:40 Calcium 8.6 mg/dL (8.5-10.1) 06/08/17 07:40 Total Bilirubin 0.5 mg/dL (0.2-1.0) D 06/08/17 07:40 AST 36 U/L (15-37) D 06/08/17 07:40 ALT 34 U/L (12-78) D 06/08/17 07:40 Alkaline Phosphatase 106 U/L (45-117) 06/08/17 07:40 Total Protein 7.0 g/dl (6.4-8.2) 06/08/17 07:40 Albumin 3.5 g/dl (3.4-5.0) 06/08/17 07:40 Urine Color Yellow 06/07/17 19:00 Urine Appearance Clear 06/07/17 19:00 Urine pH 5.0 (5.0-8.0) 06/07/17 19:00 Ur Specific [place] 1.025 (1.005-1.025) 06/07/17 19:00 Urine Protein Negative (NEGATIVE) 06/07/17 19:00 Urine Glucose (UA) Negative (NEGATIVE) 06/07/17 19:00 Urine Ketones 1+ (NEGATIVE) H 06/07/17 19:00 Urine Blood Negative (NEGATIVE) 06/07/17 19:00 Urine Nitrite Negative (NEGATIVE) 06/07/17 19:00 Urine Bilirubin Negative (NEGATIVE) 06/07/17 19:00 Urine Urobilinogen Negative mg/dL (0.2-1.0) 06/07/17 19:00 Ur Leukocyte Esterase Negative (NEGATIVE) 06/07/17 19:00 RPR Titer Nonreactive (NONREACTIVE) 06/08/17 07:40 Assessment: 06/09/17 10:55 WITHDRAWAL SX Plan: CONTINUE DETOX
[2017-06-09] MEDS: chlordiazePOXIDE 5 MG CAPSULE PO SCH ×2 (17:24→22:16)
[2017-06-09] MEDS: THIAMINE HCL 100 MG TABLET (FP) PO SCH (22:16)
[2017-06-09] MEDS: diphenhydrAMINE HCL 50 MG CAPSULE PO PRN (22:17)
[2017-06-09] MEDS: IBUPROFEN 400 MG TABLET (FP) PO PRN (23:50)
[2017-06-10] MEDS: chlordiazePOXIDE 5 MG CAPSULE PO SCH ×2 (06:04→10:15)
[2017-06-10] MEDS: CITALOPRAM HYDROBROMIDE 10 MG TABLET (FP) PO SCH (10:15)
[2017-06-10] MEDS: GABAPENTIN 300 MG CAPSULE (FP) PO SCH ×2 (10:15→22:08)
[2017-06-10] MEDS: PRENATAL VITAMINS W/ FOLIC ACID TABLET (FP) PO SCH (10:15)
[2017-06-10] MEDS: METHADONE HCL 5 MG TABLET (FOR DETOX USE ONLY) PO SCH (10:16)
--- NOTE | 2017-06-10 12:55 | PN ---
[facility] Progress Note (SOAP) Subjective: Sweating, Body Aches, Nausea, Interrupted Sleep, Tremors. Objective: PT. A & O X 2 (DISORIENTED ABOUT DAY / DATE). PT. OBSERVED AMBULATING ON UNIT. NO ACUTE DISTRESS. 06/10/17 12:54 Vital Signs Temperature 96.1 F L 06/10/17 10:07 Pulse Rate 52 L 06/10/17 10:07 Respiratory Rate 18 06/10/17 10:07 Blood Pressure 106/64 06/10/17 10:07 O2 Sat by Pulse Oximetry (%) Laboratory Tests 06/07/17 06/08/17 06/08/17 19:00 07:40 07:40 WBC 7.5 RBC 4.52 Hgb 13.2 Hct 40.5 MCV 89.6 MCH 29.3 MCHC 32.7 RDW 14.0 Plt Count 267 MPV 8.7 Sodium 136 Potassium 4.0 Chloride 102 Carbon Dioxide 25 Anion Gap 9 BUN 16 D Creatinine 0.9 Creat Clearance w eGFR > 60 Random Glucose 106 D Calcium 8.6 Total Bilirubin 0.5 D AST 36 D ALT 34 D Alkaline Phosphatase 106 Total Protein 7.0 Albumin 3.5 Urine Color Yellow Urine Appearance Clear Urine pH 5.0 Ur Specific [place] 1.025 Urine Protein Negative Urine Glucose (UA) Negative Urine Ketones 1+ H Urine Blood Negative Urine Nitrite Negative Urine Bilirubin Negative Urine Urobilinogen Negative Ur Leukocyte Esterase Negative RPR Titer 06/08/17 07:40 WBC RBC Hgb Hct MCV MCH MCHC RDW Plt Count MPV Sodium Potassium Chloride Carbon Dioxide Anion Gap BUN Creatinine Creat Clearance w eGFR Random Glucose Calcium Total Bilirubin AST ALT Alkaline Phosphatase Total Protein Albumin Urine Color Urine Appearance Urine pH Ur Specific [place] Urine Protein Urine Glucose (UA) Urine Ketones Urine Blood Urine Nitrite Urine Bilirubin Urine Urobilinogen Ur Leukocyte Esterase RPR Titer Nonreactive LABS NOTED. Assessment: 06/10/17 12:54 WITHDRAWAL SYMPTOMS. Plan: CONTINUE DETOX.
[2017-06-10] MEDS: chlordiazePOXIDE HCL 10 MG CAPSULE PO SCH ×2 (17:11→22:08)
[2017-06-10] MEDS: THIAMINE HCL 100 MG TABLET (FP) PO SCH (22:08)
[2017-06-11] MEDS: chlordiazePOXIDE HCL 10 MG CAPSULE PO SCH ×2 (05:41→10:12)
[2017-06-11] MEDS ORDERED: METHADONE HCL 10 MG TABLET (FOR DETOX USE ONLY) PO SCH (10:00)
[2017-06-11] MEDS: PRENATAL VITAMINS W/ FOLIC ACID TABLET (FP) PO SCH (10:13)
[2017-06-11] MEDS: GABAPENTIN 300 MG CAPSULE (FP) PO SCH ×2 (10:13→22:27)
[2017-06-11] MEDS: CITALOPRAM HYDROBROMIDE 10 MG TABLET (FP) PO SCH (10:13)
--- NOTE | 2017-06-11 12:07 | PN ---
[facility] Progress Note (SOAP) Subjective: Nausea, Interrupted sleep, Sweating, Body Aches, Tremors. Objective: PT. A & O X 3, OBSERVED AMBULATING ON UNIT. NO ACUTE DISTRESS. 06/11/17 12:04 Vital Signs Temperature 97.6 F 06/11/17 10:02 Pulse Rate 81 06/11/17 10:02 Respiratory Rate 18 06/11/17 10:02 Blood Pressure 107/72 06/11/17 10:02 O2 Sat by Pulse Oximetry (%) Laboratory Tests 06/07/17 06/08/17 06/08/17 19:00 07:40 07:40 WBC 7.5 RBC 4.52 Hgb 13.2 Hct 40.5 MCV 89.6 MCH 29.3 MCHC 32.7 RDW 14.0 Plt Count 267 MPV 8.7 Sodium 136 Potassium 4.0 Chloride 102 Carbon Dioxide 25 Anion Gap 9 BUN 16 D Creatinine 0.9 Creat Clearance w eGFR > 60 Random Glucose 106 D Calcium 8.6 Total Bilirubin 0.5 D AST 36 D ALT 34 D Alkaline Phosphatase 106 Total Protein 7.0 Albumin 3.5 Urine Color Yellow Urine Appearance Clear Urine pH 5.0 Ur Specific [place] 1.025 Urine Protein Negative Urine Glucose (UA) Negative Urine Ketones 1+ H Urine Blood Negative Urine Nitrite Negative Urine Bilirubin Negative Urine Urobilinogen Negative Ur Leukocyte Esterase Negative RPR Titer 06/08/17 07:40 WBC RBC Hgb Hct MCV MCH MCHC RDW Plt Count MPV Sodium Potassium Chloride Carbon Dioxide Anion Gap BUN Creatinine Creat Clearance w eGFR Random Glucose Calcium Total Bilirubin AST ALT Alkaline Phosphatase Total Protein Albumin Urine Color Urine Appearance Urine pH Ur Specific [place] Urine Protein Urine Glucose (UA) Urine Ketones Urine Blood Urine Nitrite Urine Bilirubin Urine Urobilinogen Ur Leukocyte Esterase RPR Titer Nonreactive LABS NOTED. Assessment: 06/11/17 12:05 WITHDRAWAL SYMPTOMS. Plan: CONTINUE DETOX.
[2017-06-11] MEDS: THIAMINE HCL 100 MG TABLET (FP) PO SCH (22:27)
[2017-06-11] MEDS: diphenhydrAMINE HCL 50 MG CAPSULE PO PRN (22:28)
[2017-06-12] MEDS ORDERED: METHADONE HCL 5 MG TABLET (FOR DETOX USE ONLY) PO SCH (06:00)
[2017-06-12] MEDS: IBUPROFEN 400 MG TABLET (FP) PO PRN (07:33)
[2017-06-12 09:47] VITALS: BP 100/56; PULSE 64; TEMP 96.4
[2017-06-12] MEDS: CITALOPRAM HYDROBROMIDE 10 MG TABLET (FP) PO SCH (10:26)
[2017-06-12] MEDS: GABAPENTIN 300 MG CAPSULE (FP) PO SCH (10:27)
[2017-06-12] MEDS: PRENATAL VITAMINS W/ FOLIC ACID TABLET (FP) PO SCH (10:27)
--- NOTE | 2017-06-12 14:37 | DS ---
[facility] Detox Discharge Summary Admission Date: 06/07/17 Discharge Date: 06/12/17 - History Present History: Alcohol Dependence, Cocaine Dependence, Opioid Dependence Additional Comments: PATIENT GOING TO [facility] ([place], [place] PATIENT WAS DISCHARGED FROM DETOX UNIT IN STABLE MEDICAL CONDITION. Pertinent Past History: Bipolar Disorder, Hep C, Depression, Nicotine Dependence, History of Positive PPD (Treated). - Physical Exam Results Vital Signs: Vital Signs Temperature 96.4 F L 06/12/17 09:46 Pulse Rate 64 06/12/17 09:46 Respiratory Rate 16 06/12/17 09:46 Blood Pressure 100/56 06/12/17 09:46 O2 Sat by Pulse Oximetry (%) Pertinent Admission Physical Exam Findings: WITHDRAWAL SYMPTOMS. Laboratory Tests 06/07/17 06/08/17 06/08/17 19:00 07:40 07:40 WBC 7.5 RBC 4.52 Hgb 13.2 Hct 40.5 MCV 89.6 MCH 29.3 MCHC 32.7 RDW 14.0 Plt Count 267 MPV 8.7 Sodium 136 Potassium 4.0 Chloride 102 Carbon Dioxide 25 Anion Gap 9 BUN 16 D Creatinine 0.9 Creat Clearance w eGFR > 60 Random Glucose 106 D Calcium 8.6 Total Bilirubin 0.5 D AST 36 D ALT 34 D Alkaline Phosphatase 106 Total Protein 7.0 Albumin 3.5 Urine Color Yellow Urine Appearance Clear Urine pH 5.0 Ur Specific [place] 1.025 Urine Protein Negative Urine Glucose (UA) Negative Urine Ketones 1+ H Urine Blood Negative Urine Nitrite Negative Urine Bilirubin Negative Urine Urobilinogen Negative Ur Leukocyte Esterase Negative RPR Titer 06/08/17 07:40 WBC RBC Hgb Hct MCV MCH MCHC RDW Plt Count MPV Sodium Potassium Chloride Carbon Dioxide Anion Gap BUN Creatinine Creat Clearance w eGFR Random Glucose Calcium Total Bilirubin AST ALT Alkaline Phosphatase Total Protein Albumin Urine Color Urine Appearance Urine pH Ur Specific [place] Urine Protein Urine Glucose (UA) Urine Ketones Urine Blood Urine Nitrite Urine Bilirubin Urine Urobilinogen Ur Leukocyte Esterase RPR Titer Nonreactive LABS NOTED. - Treatment Hospital Course: Detox Protocol Followed, Detoxed Safely, Responded well, Discharged Condition Good, Rehab Referral Accepted Patient has Accepted a Rehab Referral to: [facility] ([place], [place] - Medication Discharge Medications: Ambulatory Orders Citalopram Hydrobromide [Celexa -] 10 mg PO DAILY #30 tablet 09/24/16 Citalopram Hydrobromide [Celexa -] 10 mg PO DAILY #30 tablet 06/12/17 Gabapentin 600 mg PO BID #60 mg 06/12/17 - Diagnosis (1) Alcohol dependence with uncomplicated withdrawal Status: Acute (2) Cocaine dependence, uncomplicated Status: Acute (3) Nicotine dependence Status: Acute Qualifiers: Nicotine product type: cigarettes Substance use status: in withdrawal Qualified Code(s): F17.213 - Nicotine dependence, cigarettes, with withdrawal; F17.213 - Nicotine dependence, cigarettes, with withdrawal (4) Opioid dependence with withdrawal Status: Acute (5) Substance-induced sleep disorder Status: Acute (6) Hepatitis C Status: Chronic Qualifiers: Viral hepatitis chronicity: chronic Hepatic coma status: without hepatic coma Qualified Code(s): B18.2 - Chronic viral hepatitis C; B18.2 - Chronic viral hepatitis C; B18.2 - Chronic viral hepatitis C; B18.2 - Chronic viral hepatitis C (7) PPD positive, treated Status: Chronic (8) Weight loss Status: Chronic (9) Bipolar I disorder, most recent episode depressed Status: Acute - AMA Did Patient Leave Against Medical Advice: No
== END 2017-06-12 10:46 | disposition home or self-care (01) | DRG 773 ==
LOC: YASAS 11:58 → Y3N 15:01
PROVIDERS: ADMIT Internal Medicine; ATTEND Internal Medicine
PROC: HZ2ZZZZ Detoxification Services for Substance Abuse Treatment (ICD-10-PCS; principal; 2017-06-07)
DX: F11.23 Opioid dependence with withdrawal (principal); F10.230 Alcohol dependence with withdrawal, uncomplicated; F14.20 Cocaine dependence, uncomplicated; F17.213 Nicotine dependence, cigarettes, with withdrawal; F19.282 Other psychoactive substance dependence with psychoactive substance-induced sleep disorder; F31.9 Bipolar disorder, unspecified; B18.2 Chronic viral hepatitis C; R76.11 Nonspecific reaction to tuberculin skin test without active tuberculosis; Z87.898 Personal history of other specified conditions; Z91.013 Allergy to seafood; Z91.5 Personal history of self-harm
CPT/HCPCS: 36415; 71020-TC; 80053; 81003; 85027; 86593; 93005; 93010

== ENCOUNTER 2021-09-10 09:56 | Inpatient (IN) | payer OTHER ==
[2021-09-10 11:24] VITALS: BMI 21.9
[2021-09-10] MEDS ORDERED: NICOTINE 10 MG CARTRIDGE (INHALER) IH PRN (15:52)
[2021-09-10] MEDS ORDERED: BISMUTH SUBSALICYLATE 524 MG/30 ML PO PRN (15:52)
[2021-09-10] MEDS ORDERED: MAGNESIUM HYDROX 2400MG/30ML ORAL SUSPENSION 30 ML CUP PO PRN (15:52)
[2021-09-10] MEDS ORDERED: ONDANSETRON *ODT* 4 MG TABLET SL PRN (15:52)
[2021-09-10] MEDS ORDERED: ACETAMINOPHEN 325 MG TABLET (FP) PO PRN ×2 (15:52)
[2021-09-10] MEDS ORDERED: METHOCARBAMOL 500 MG TABLET PO PRN (15:52)
[2021-09-10] MEDS ORDERED: MAGNESIUM CITRATE 300 ML BOTTLE PO PRN (15:52)
[2021-09-10] MEDS ORDERED: MAG HYDROX/AL HYDROX/SIMETH 30 ML UNIT-DOSE CUP PO PRN (15:52)
[2021-09-10] MEDS ORDERED: IBUPROFEN 400 MG TABLET (FP) PO PRN (15:52)
[2021-09-10] MEDS ORDERED: MENTHOL/PHENOL 1 EACH UD MM PRN (15:52)
[2021-09-10] MEDS: hydrOXYzine PAMOATE 25 MG CAPSULE (FP) PO SCH ×2 (18:47→22:15)
[2021-09-10] MEDS ORDERED: THIAMINE HCL 100 MG TABLET (FP) PO SCH (22:00)
[2021-09-10] MEDS ORDERED: MELATONIN 5 MG TABLETS PO SCH (22:00)
[2021-09-11] MEDS: hydrOXYzine PAMOATE 25 MG CAPSULE (FP) PO SCH ×3 (06:26→13:41)
[2021-09-11] MEDS ORDERED: methaDONE HCL 40 MG DISPERSABLE TABLET PO SCH (09:45)
[2021-09-11] MEDS ORDERED: PRENATAL VITAMINS W/ FOLIC ACID TABLET (FP) PO SCH (10:00)
[2021-09-11 10:47] LABS: CALCIUM 9.5 mg/dL (8.5-10.1); HEMOGLOBIN 13.5 GM/dL (11.7-16.9); MCH 29.2 pg (25.7-33.7); MCHC 32.8 g/dl (32.0-35.9); MEAN CELL VOLUME 88.9 fl (80-96); MEAN PLT VOLUME 8.3 fl (7.5-11.1); PLATELET COUNT 265 10^3/uL (134-434); RBC 4.62 M/mm3 (4.00-5.60); RDW 13.9 % (11.9-15.9); WHITE BLOOD COUNT 8.2 K/mm3 (4.0-10.0)
[2021-09-11 10:48] LABS: ALBUMIN 3.7 g/dl (3.4-5.0); BLOOD UREA NITROGEN 16.1 mg/dL (7-18)
[2021-09-11 10:51] LABS: CREATININE 0.8 mg/dL (0.55-1.3)
[2021-09-11 10:52] LABS: BILIRUBIN,TOTAL 0.4 mg/dL (0.2-1); TOT PROT 7.5 g/dl (6.4-8.2)
[2021-09-11 12:59] VITALS: BP 100/64; PULSE 69; TEMP 98.7
[2021-09-11 13:03] LABS: HIV INTERPRETATION NEGATIVE (NEGATIVE)
[2021-09-11] MEDS ORDERED: NICOTINE 10 MG CARTRIDGE (INHALER) IH PRN (15:45)
[2021-09-11] MEDS ORDERED: ACETAMINOPHEN 325 MG TABLET (FP) PO PRN (15:45)
[2021-09-11] MEDS ORDERED: LOPERAMIDE HCL 2 MG CAPSULE PO PRN (15:45)
[2021-09-11] MEDS ORDERED: P-EPHED 60MG/TRIPROLIDI 2.5MG TABLET PO PRN (15:45)
[2021-09-11] MEDS ORDERED: MAGNESIUM CITRATE 300 ML BOTTLE PO PRN (15:45)
[2021-09-11] MEDS ORDERED: IBUPROFEN 400 MG TABLET (FP) PO PRN (15:45)
[2021-09-11] MEDS ORDERED: MAG HYDROX/AL HYDROX/SIMETH 30 ML UNIT-DOSE CUP PO PRN (15:45)
[2021-09-11] MEDS ORDERED: MAGNESIUM HYDROX 2400MG/30ML ORAL SUSPENSION 30 ML CUP PO PRN (15:45)
[2021-09-11] MEDS ORDERED: guaiFENesin 200 MG/10 ML 10 ML UNIT-DOSE CUPS PO PRN (15:45)
[2021-09-11] MEDS ORDERED: MENTHOL/PHENOL 1 EACH UD MM PRN (15:45)
[2021-09-11] MEDS ORDERED: hydrOXYzine PAMOATE 25 MG CAPSULE (FP) PO SCH (18:00)
[2021-09-11] MEDS ORDERED: MELATONIN 5 MG TABLETS PO SCH (22:00)
[2021-09-11] MEDS ORDERED: THIAMINE HCL 100 MG TABLET (FP) PO SCH (22:00)
[2021-09-12] MEDS ORDERED: methaDONE HCL 10 MG TABLET PO SCH (06:00)
[2021-09-12] MEDS ORDERED: NICOTINE 7 MG/24 HOURS TOPICAL PATCH TD SCH (10:00)
[2021-09-12] MEDS ORDERED: PRENATAL VITAMINS W/ FOLIC ACID TABLET (FP) PO SCH (10:00)
== END 2021-09-11 14:50 | disposition other institution (70) | DRG 773 ==
LOC: YASAS 09:56 → Y3N 16:03
PROVIDERS: ADMIT Allergy & Immunology; ATTEND Allergy & Immunology
PROC: HZ2ZZZZ Detoxification Services for Substance Abuse Treatment (ICD-10-PCS; principal; 2021-09-10)
DX: F11.23 Opioid dependence with withdrawal (principal); F10.230 Alcohol dependence with withdrawal, uncomplicated; F14.20 Cocaine dependence, uncomplicated; F17.210 Nicotine dependence, cigarettes, uncomplicated; F19.282 Other psychoactive substance dependence with psychoactive substance-induced sleep disorder; F31.81 Bipolar II disorder; F31.30 Bipolar disorder, current episode depressed, mild or moderate severity, unspecified; F41.0 Panic disorder [episodic paroxysmal anxiety]; B19.20 Unspecified viral hepatitis C without hepatic coma; R76.11 Nonspecific reaction to tuberculin skin test without active tuberculosis; Z86.2 Personal history of diseases of the blood and blood-forming organs and certain disorders involving the immune mechanism
CPT/HCPCS: 36415; 80053; 85027; 86780; 87389; C9803-CS; U0003; U0005

== ENCOUNTER 2021-09-11 13:25 | Inpatient (IN) | payer OTHER ==
[2021-09-11] MEDS ORDERED: IBUPROFEN 400 MG TABLET (FP) PO PRN (17:17)
[2021-09-11] MEDS ORDERED: MAGNESIUM CITRATE 300 ML BOTTLE PO PRN (17:17)
[2021-09-11] MEDS ORDERED: MAG HYDROX/AL HYDROX/SIMETH 30 ML UNIT-DOSE CUP PO PRN (17:17)
[2021-09-11] MEDS ORDERED: MAGNESIUM HYDROX 2400MG/30ML ORAL SUSPENSION 30 ML CUP PO PRN (17:17)
[2021-09-11] MEDS ORDERED: MENTHOL/PHENOL 1 EACH UD MM PRN (17:17)
[2021-09-11] MEDS ORDERED: ACETAMINOPHEN 325 MG TABLET (FP) PO PRN (17:17)
[2021-09-11] MEDS ORDERED: LOPERAMIDE HCL 2 MG CAPSULE PO PRN (17:17)
[2021-09-11] MEDS ORDERED: P-EPHED 60MG/TRIPROLIDI 2.5MG TABLET PO PRN (17:17)
[2021-09-11] MEDS ORDERED: guaiFENesin 200 MG/10 ML 10 ML UNIT-DOSE CUPS PO PRN (17:17)
[2021-09-11] MEDS: THIAMINE HCL 100 MG TABLET (FP) PO SCH (21:08)
[2021-09-11] MEDS ORDERED: MELATONIN 5 MG TABLETS PO SCH (22:00)
[2021-09-12] MEDS: methaDONE HCL 40 MG DISPERSABLE TABLET PO SCH (09:11)
[2021-09-12] MEDS: PRENATAL VITAMINS W/ FOLIC ACID TABLET (FP) PO SCH (09:11)
[2021-09-12] MEDS ORDERED: lamoTRIgine 25 MG TABLET PO SCH (11:15)
[2021-09-12] MEDS ORDERED: ARIPiprazole 5 MG TABLET PO SCH (11:15)
[2021-09-12] MEDS ORDERED: FLU VACC QS2021-22(6MOS UP)/PF 60 MCG/0.5 ML SYRINGE IM ONE (12:00)
[2021-09-12] MEDS: SERTRALINE HCL 50 MG TABLET (FP) PO SCH (12:09)
[2021-09-12] MEDS: GABAPENTIN 100 MG CAPSULE PO SCH ×2 (14:10→21:18)
[2021-09-12] MEDS: DONEPEZIL HCL 10 MG TABLET (FP) PO SCH (18:17)
[2021-09-12] MEDS: THIAMINE HCL 100 MG TABLET (FP) PO SCH (21:18)
[2021-09-12] MEDS: AMITRIPTYLINE HCL 100 MG TABLET PO SCH (21:18)
[2021-09-12] MEDS: QUEtiapine FUMARATE 100 MG TABLET (FP) PO SCH (21:18)
[2021-09-12] MEDS: LITHIUM CARBONATE 150 MG CAPSULE PO SCH (21:18)
[2021-09-12] MEDS: PRAZOSIN HCL 5 MG CAPSULE PO SCH (21:21)
[2021-09-12] MEDS ORDERED: QUEtiapine FUMARATE 200 MG TABLET PO SCH (22:00)
[2021-09-13] MEDS: GABAPENTIN 100 MG CAPSULE PO SCH ×3 (06:30→21:49)
[2021-09-13] MEDS: methaDONE HCL 40 MG DISPERSABLE TABLET PO SCH (06:30)
[2021-09-13] MEDS: DONEPEZIL HCL 10 MG TABLET (FP) PO SCH (09:09)
[2021-09-13] MEDS: LITHIUM CARBONATE 150 MG CAPSULE PO SCH ×2 (09:09→21:50)
[2021-09-13] MEDS: SERTRALINE HCL 50 MG TABLET (FP) PO SCH (09:09)
[2021-09-13] MEDS: PRENATAL VITAMINS W/ FOLIC ACID TABLET (FP) PO SCH (09:09)
[2021-09-13] MEDS: QUEtiapine FUMARATE 100 MG TABLET (FP) PO SCH (21:49)
[2021-09-13] MEDS: PRAZOSIN HCL 5 MG CAPSULE PO SCH (21:49)
[2021-09-13] MEDS: AMITRIPTYLINE HCL 100 MG TABLET PO SCH (21:50)
[2021-09-13] MEDS: THIAMINE HCL 100 MG TABLET (FP) PO SCH (21:57)
[2021-09-14] MEDS: GABAPENTIN 100 MG CAPSULE PO SCH (06:09)
[2021-09-14] MEDS: methaDONE HCL 40 MG DISPERSABLE TABLET PO SCH (06:09)
[2021-09-14 07:29] VITALS: BP 100/56; PULSE 85; TEMP 98.9
[2021-09-14] MEDS: SERTRALINE HCL 50 MG TABLET (FP) PO SCH (09:57)
[2021-09-14] MEDS: LITHIUM CARBONATE 150 MG CAPSULE PO SCH (09:57)
[2021-09-14] MEDS: PRENATAL VITAMINS W/ FOLIC ACID TABLET (FP) PO SCH (09:57)
[2021-09-14] MEDS: DONEPEZIL HCL 10 MG TABLET (FP) PO SCH (09:58)
[2021-09-14] MEDS ORDERED: PANTOPRAZOLE 40 MG TABLET PO SCH (10:00)
[2021-09-14] MEDS ORDERED: BACITRACIN 0.9 GM PACKET TP SCH (10:00)
[2021-09-14] MEDS ORDERED: LITHIUM CARBONATE 300 MG CAPSULE PO SCH (12:15)
[2021-09-14] MEDS ORDERED: GABAPENTIN 300 MG CAPSULE PO SCH (14:00)
== END 2021-09-14 12:54 | disposition left against medical advice (07) | DRG 770 ==
LOC: YASAS 13:25 → Y3E 13:26 → Y5N 09-13 15:46
PROVIDERS: ADMIT Allergy & Immunology; ATTEND Allergy & Immunology
PROC: HZ42ZZZ Group Counseling for Substance Abuse Treatment, Cognitive-Behavioral (ICD-10-PCS; principal; 2021-09-11)
DX: F11.20 Opioid dependence, uncomplicated (principal); F10.20 Alcohol dependence, uncomplicated; F14.20 Cocaine dependence, uncomplicated; F12.10 Cannabis abuse, uncomplicated; F19.282 Other psychoactive substance dependence with psychoactive substance-induced sleep disorder; F31.9 Bipolar disorder, unspecified; F43.10 Post-traumatic stress disorder, unspecified; M17.12 Unilateral primary osteoarthritis, left knee; M19.011 Primary osteoarthritis, right shoulder; K40.90 Unilateral inguinal hernia, without obstruction or gangrene, not specified as recurrent; Z62.810 Personal history of physical and sexual abuse in childhood; Z87.19 Personal history of other diseases of the digestive system; Z91.013 Allergy to seafood
CPT/HCPCS: 36415; 80178; 90686; 93005; 93010; C9803; G0008; U0003; U0005